=== PATIENT | female | born 1980 | race Caucasian/White ===

== ENCOUNTER 2018-01-22 13:15 | Day surgery (SDC) | payer BC, SELFPAY ==
--- NOTE | 2018-01-22 10:34 | PDOC.DSDIS_ITS ---
Discharge Plan Disposition Patient Disposition: HOME Condition: Good Discharge Details Reason For Visit: family history Attending Provider: Elana Boogie Primary Care Provider: Deana Gurrola Home Meds and New Rx's Prescriptions: Continue acetaminophen 500 MG tablet 1 - 2 tab PO Q4H PRN RF: 0 naproxen sodium [Aleve] 220 MG tablet 2 tab PO BID PRNRF: 0 sumatriptan succinate 25 MG tablet 25 mg PO ONCE Qty: 16 RF: 3 sertraline 50 mg tablet 1 tab PO DAILY Qty: 90 RF: 3 lisinopril 20 mg tablet 20 mg PO DAILY Qty: 90 RF: 3 Discharge Instructions Instructions: Colonoscopy (DC), Hemorrhoids (DC), Diverticulosis (DC) Additional Instructions: Findings: small internal hemorrhoids mild diverticulosis Follow up: 5 years New Medications: none Please call if you develop: fevers >101.5 Nausea or Vomiting Abdominal pain that is not transient 1. Because there will be medication in your system for the next 24 hours, you may feel a little sleepy. Your coordination will be affected. Therefore: a. Do not drive or operate dangerous equipment for 24 hours. b. Do not drink alcohol beverages for 24 hours (not even beer). c. Plan to go home and rest for the day. 2. Generally there are no restrictions on your activity after a day or so has gone by, but you may feel a bit fatigued for a few days. 3 After you arrive home you may have a light meal and return to a normal diet as you can tolerate it without feeling sick to your stomach. 4. After surgery, you may feel pain or discomfort. This should be only transient , but if it persists please contact your doctor. 5. If there are any questions regarding the findings of your procedure, please feel free to contact your doctor. 6. If you are unable to contact your doctor with a problem, contact the hospital at [phone]. 7. Continue all your regular medications unless directed otherwise. I understand the above instructions and have no questions. Signature of Patient or Responsible Adult Escort Date/Time Name of Responsible Adult Escort Signature of Nurse Date/Time Activity:: Activity as Tolerated Diet:: High fiber diet Discharge Orders Discharge Orders: Discharge Order (Routine); Ordered 01/22/18 Ordered By: Elana Boogie DS: Diagnosis Discharge Diagnosis (1) Family history of colon cancer: Status: Acute (2) Internal hemorrhoids without complication: Status: Acute (3) Diverticulosis: Status: Acute
--- NOTE | 2018-01-22 10:34 | W.COLOREPORT ---
Date of service: 01/22/18 Time of Service: 15:50 Colonoscopy Report Date of procedure: 01/22/18 Pre-op diagnosis general: Family history of colon cancer Post-op diagnosis procedure note: same (small internal hemorrhoids) Procedure: Colonoscopy Surgeon: Elana Boogie Anesthesia proc note operative: MAC (Aubrie Cardona CRNA) Pathology: none sent Complications: None Disposition: same day Indications: Mrs. Hugo is a pleasant 37 year old female seen in the office for a colonoscopy. Her mother was diagnosed with Colon Cancer at age 40 but also has had UC. Patient denies any changes in bowel habits, abdominal pain, bleeding or unintentional weight loss. Risks, benefits and complications were reviewed and she wished to proceed. No guarantees were given or implied. Prep: Miralax/Dulcolax Procedure Start Time: 15:08 Procedure End Time: 15:43 Retraction Time: 19 minutes Findings: Small internal hemorrhoids mild diverticulosis Procedure Description: After informed consent was obtained the patient was taken to the procedure room and placed in a left decubitous position. Monitors were applied and a time out was done. The patients name, date of , procedure, allergies to medications and metal in their body was reviewed. The patient was then sedated. Once sedated and comfortable a rectal exam was done. External exam was normal. Internal exam revealed a normal sphincter tone and no palpable masses. The scope was then introduced and retroflexed. Small internal hemorrhoids were identified. The scope was then advanced to the cecum without difficulty. The TI and appendiceal orifice were identified. The prep was adeuquate. The scope was then slowly retracted over 19 minutes back into the rectum. The scope was removed and the patient was woken up and taken back to Same day surgery in stable condition. The patient tolerated the procedure well and there were no immediate complications. Follow up: The patient should follow up in 5 years unless they develop changes in bowel habits or other new gastrointestinal complaints.
[2018-01-22 13:32] VITALS: BP 120/78; PULSE 90; RESP 16; TEMP 37.5; O2SAT 97
[2018-01-22] MEDS: Lactated Ringers 1,000 ML 80 ML IV (14:00)
[2018-01-22 16:07] VITALS: BP 124/86; PULSE 70; RESP 18; TEMP 36.6; O2SAT 97
== END 2018-01-22 17:02 | disposition home or self-care (01) ==
PROVIDERS: PCP Family Medicine; Visit Provider Surgery
PROC: 0DJD8ZZ Inspection of Lower Intestinal Tract, Via Natural or Artificial Opening Endoscopic (ICD-10-PCS; CPT 45378; principal; 2018-01-22 14:45)
DX: Z12.11 Encounter for screening for malignant neoplasm of colon (principal); Z80.0 Family history of malignant neoplasm of digestive organs; K64.8 Other hemorrhoids
CPT/HCPCS: 45378

== ENCOUNTER 2018-05-27 15:23 | Outpatient (CLI) | payer BC, SELFPAY ==
--- NOTE | 2018-05-27 08:50 | DI.RAD_ITS ---
SYMPTOM/DIAGNOSIS: ? CALCIFIC TENDINITIS, ROTATOR CUFF SYNDROME, RT SHOULDER PAIN, M25.51, [id number], UNSPECIFIED ROTATOR CUFF TEAR OR RUPTURE OF SHOULDER RIGHT SHOULDER: The bony structures are normally mineralized. The joint spaces well maintained. There are minimal degenerative changes involving the AC joint. There is no evidence of a fracture or dislocation.
== END 2018-05-27 15:43 ==
PROVIDERS: PCP Family Medicine; Visit Provider Family Medicine
DX: M25.511 Pain in right shoulder (principal); M19.011 Primary osteoarthritis, right shoulder; M75.101 Unspecified rotator cuff tear or rupture of right shoulder, not specified as traumatic
CPT/HCPCS: 73030

== ENCOUNTER 2018-09-01 09:57 | Outpatient (REF) | payer BC, SELFPAY ==
--- NOTE | 2018-09-01 09:30 | PAPFT_PTH ---
PATIENT: Suzie Hugo LOC: [facility] U#:[id number] AGE/SX: 37/F ROOM: RE09/01/[address]: KUSHAL Gotti : 1980 BED: DIS: 09/01/2018 SPEC #: [id number] RECD: 09/01/18 13:01 STATUS: KATIA KIMBERLI #: [id number] JOHNATHAN: 09/01/18 09:[address]: Holly Alvarez DEPT: [facility] Cytology RECD BY: Kamilah Bashir ENTERED: 09/01/18 13:02 SP TYPE: PAPFT OTHR DR: Deana Gurrola MD, DC Tissues: 1 - CX/ENDOCX FOR PAP SMEARS Procedures: PAP THIN PREP/UVM Screening HPV DNA PROBE Comments: [id number]
== END 2018-09-01 10:17 ==
LOC: LBN 09:57
PROVIDERS: PCP Family Medicine; Visit Provider Nurse Practitioner Family
DX: Z12.4 Encounter for screening for malignant neoplasm of cervix (principal); Z11.51 Encounter for screening for human papillomavirus (HPV)
CPT/HCPCS: 88142; 87624

== ENCOUNTER 2019-01-28 18:12 | Emergency (ER) | payer BC, SELFPAY ==
[2019-01-28] VITALS (17 sets, daily range): BP systolic 128–138; BP diastolic 86–93; PULSE 69–94; RESP 8–26; TEMP 36.3; O2SAT 94–99
--- NOTE | 2019-01-28 18:39 | ED.GENADUL_ITS ---
Discharge Plan Disposition Patient Disposition: HOME Condition: Stable Discharge Details Chief Complaint: Chest Pain Clinical Impression: Chest pain Primary Care Provider: Deana Gurrola ED Provider: Sheng Quispe Home Meds and New Rx's Prescriptions: New diazepam [Valium] 5 mg tablet 5 mg PO TID PRN (Reason: muscle spasm) Qty: 14 RF: 0 Continued acetaminophen 500 MG tablet 1 - 2 tab PO Q4H PRN RF: 0 naproxen sodium [Aleve] 220 MG tablet 2 tab PO BID PRNRF: 0 sumatriptan succinate 25 MG tablet 25 mg PO ONCE Qty: 16 RF: 3 lisinopril 20 mg tablet 20 mg PO DAILY Qty: 90 RF: 3 sertraline 50 mg tablet 50 mg PO DAILY Qty: 90 RF: 3 Discharge Instructions Instructions: Chest Pain (ED) Additional Instructions: your blood work and cat scan did not show any concerning findings follow up with your primary care provider within 1-2 weeks if you have severe worsening pain, feel more ill or have worsening shortness of breath return to the emergency department Medical Decision Making <Trinity Landa DO - Last Filed: 01/28/19 20:01> 1855 -- 38-year-old female with history of hypertension, high cholesterol, migraine who presents with anterior chest pain with radiation to her back and left arm that started while driving in the car today. Pain worse with deep breath and some movement. Denies known injury. Denies recent surgery, travel, leg pain or swelling or history of oral contraceptives. She states her mother has a history of frequent DVTs but she is unsure of specific blood clotting disorder. EKG on arrival notes a rate of 76, sinus with less than [address] depression in V3 and V4 but no acute ST elevation. Patient has tenderness to palpation of her right parasternal region without evidence of trauma, rash or infection. Pain is also reproduced when moving from supine to sitting position. Presentation appears most likely consistent with chest wall strain or cos tochondritis as it is reproducible, worse with deep breath and movement and palpation. However, will obtain screening labs and CT chest to rule out PE, ACS, electrolyte abnormality. Will give a dose of Toradol, Lidoderm patch and give liter IV fluids. If work-up negative and symptoms improve, will obtain a 4-hour troponin. 1999 --Case endorsed to Dr. Quispe to follow-up on labs and imaging and final disposition. Medical Records Medical records reviewed: Yes I reviewed the patient's medical records. ECG Data Attestation: I personally reviewed and interpreted this ECG (s) as follows: Interpretation: Rate of 76, sinus. Less than [address] depression in V3 and V4. No acute ST elevation. NE 144. QTc 418. QRS 94. <Sheng Quispe MD - Last Filed: 01/28/19 20:45> patient's labs and imaging unremarakble, she has reproducible pain on anterior chest, suspect costochondritis vs esophageal spasm. Will d/c with muscle relaxers for possible spasm and advised f/u with pcp and return precautions given Lab Data Lab results reviewed: Yes I reviewed the patient's lab results. HPI <Trinity Landa DO - Last Filed: 01/28/19 20:01> General Mode of arrival: ambulatory . Date/Time Provider Initiated Documentation: 01/28/19 18:14 . Limitations to Documentation: no limitations . Information obtained by: patient . History of Present Illness with intensity rated at 7. Quality is described as constant and other (Pressure), and is localized to the chest. Patient reports radiation to back. Patient started experiencing this hour(s) (2) and it has been constant. Rest improves symptom(s), Other factors that worsen symptoms (Deep breath, moving from supine to sitting position) . Patient notes denies cough, diaphoresis, fever/chills, loss of appetite, nausea/vomiting, rash, shortness of breath, syncope and weakness. Patient did receive the following treatments prior to arrival, none Related Data Home Medications Medication Instructions Recorded Confirmed acetaminophen 1 - 2 tab PO Q4H PRN 06/25/12 01/28/19 naproxen sodium [Aleve] 2 tab PO BID PRN 07/12/13 01/28/19 sumatriptan succinate 25 mg PO ONCE #16 tab-cap 08/06/16 01/28/19 lisinopril 20 mg tablet 20 mg PO DAILY #90 tab-cap 01/06/19 01/28/19 sertraline 50 mg tablet 50 mg PO DAILY #90 tab-cap 01/06/19 01/28/19 diazepam [Valium] 5 mg PO TID PRN #14 tab 01/28/19 Previous Rx's Medication Instructions Recorded lisinopril 20 mg tablet 20 mg PO DAILY #90 tab-cap 01/06/19 sertraline 50 mg tablet 50 mg PO DAILY #90 tab-cap 01/06/19 diazepam [Valium] 5 mg PO TID PRN #14 tab 01/28/19 Allergies Allergy/AdvReac Type Severity Reaction Status Date / Time Scallops AdvReac Swelling Uncoded 01/28/19 18:40 and GI Review of Systems <Trinity Landa DO - Last Filed: 01/28/19 20:01> All systems reviewed & are unremarkable except as noted in HPI and below Constitutional Constitutional: Reports as per HPI, Denies chills and Denies fever(s) Eyes Eyes: Denies blurry vision ENT Ears, Nose, Mouth, and Throat: Denies dizziness, Denies sore throat and Denies throat swelling Cardiovascular Cardiovascular: Reports chest pain and Denies dyspnea Respiratory Respiratory: Denies cough and Denies dyspnea Gastrointestinal Gastrointestinal: Denies abdominal pain, Denies diarrhea and Denies vomiting Genitourinary Genitourinary: Denies hematuria and Denies dysuria Musculoskeletal Musculoskeletal: Denies back pain and Denies numbness Integumentary/Breasts Skin/Breast: Denies lesions and Denies rash Neurologic Neurologic: Denies dizziness, Denies focal weakness and Denies numbness Allergic/Immunologic Allergic/Immunologic: Denies throat swelling PFSH <Trinity Landa DO - Last Filed: 01/28/19 20:01> Medical History Anxiety (Acute 02/21/16) Diverticulosis (Acute) Essential hypertension (Acute 01/04/13) Family history of colon cancer (Acute 08/21/17) Mother - UC and Dx with colon ca at 40 Family history of ovarian cancer (Acute 08/03/15) pt's father's mother and 2 sisters w/ ovarian ca thyroid ca in family Hyperlipidemia (Acute) Internal hemorrhoids without complication (Acute) Migraine (Acute) Skin lesion of face (Acute) Surgical History section (~2004) X 2 Colonoscopy planned (Resolved ~01/22/18) Tonsillectomy and adenoidectomy (~2006) Family History Mother Colon cancer also had UC Thyroid cancer Father Prostate cancer Essential hypertension Brother Adenomatous colon polyp Grandmother Breast cancer paternal Social History Smoking/Tobacco Use Status: Never Alcohol Intake: current Alcohol Intake frequency: holidays/special occasions only Drug use: Never Substance use type: does not use Do you feel safe at home: Yes Do you feel safe in your relationship?: Yes Exam <Trinity Landa DO - Last Filed: 01/28/19 20:01> Const General: cooperative, healthy appearing and no acute distress HENMT Head: normal to inspection Face and sinus: normal facial exam Eyes General: appearance normal, both eyes and all related structures EOM: EOM intact bilaterally Neck Neck: normal visual inspection and No submandibular swelling Lymphatic: no lymphadenopathy noted Chest Chest: normal inspection of the chest and no tenderness Resp Effort & Inspection: normal respiratory effort and able to speak in complete sentences Auscultation: clear to auscultation bilaterally Cardio Rate: regular rate Rhythm: regular rhythm GI Inspection: normal to inspection Palpation: soft, not firm, not rigid and nontender Auscultation: normal bowel sounds Back/Spine/Pelvis Thoracic/Lumbar Spine: thoracic and lumbar spine normal to inspection and No thoracic spinal tenderness Skin General skin exam: no rashes or lesions noted Neuro General: alert, awake and oriented x3 Cognition: normal cognition Speech: speech normal Motor: muscle tone normal throughout Sensory Exam: no sensory deficits noted Extrem General: normal to inspection, full ROM, normal capillary refill, no calf tenderness bilaterally and no edema Other: Bilateral radial and ulnar pulses intact. Psych Appearance: grossly normal Mental Status: mental status grossly normal Speech and Movement: speech and movement normal Affect: normal affect Sign Out <Trinity Landa DO - Last Filed: 01/28/19 20:01> Sign Out Data: Sign Out Comment: Follow-up on labs and imaging and final disposition. Last updated by Trinity Landa DO at 01/28/19 19:19
[2019-01-28] MEDS: Ketorolac 30 MG/ML VIAL IVP (19:25)
[2019-01-28] MEDS: Lidocaine 5% Patch 1 PATCH TP (19:30)
[2019-01-28 19:47] LABS: Abs Immature Grans 0.03 k/cumm (0.0-0.09); Absolute Basophil Count 0.04 k/cumm (0.0-0.2); Absolute Eosinophil Count 0.13 k/cumm (0.0-0.7); Absolute Lymphocyte Count 3.39 k/cumm (1.2-3.4); Absolute Monocyte Count 0.76 k/cumm (0.11-0.7); Absolute Neutrophil Count 5.04 k/cumm (1.2-6.7); Basophils % 0.4; Eosinophils % 1.4; HCT 40.1 % (36.0-46.0); Immature Grans % 0.3; Lymphocytes % 36.1; Mean Corp. HGB Concentration 32.4 g/dL (32.0-36.0); Mean Corpuscular Hemoglobin 27.2 pg (27.0-33.0); Mean Corpuscular Volume 83.9 fL (80-95); Mean Platelet Volume 8.8 fL (8.0-11.0); Monocytes % 8.1; Neutrophils % 53.7; Platelet Count 432 x1000/uL (130-400); RBC 4.78 m/cumm (4.00-5.20); RBC Distribution Width 14.8 % (11.7-14.6); White Blood Cell Count 9.39 k/cumm (4.4-10.8)
[2019-01-28] MEDS: Omnipaque 350 MG/ML 100 ML BTL IJ (20:14)
--- NOTE | 2019-01-28 20:14 | DI.CT_ITS ---
EXAM: CT CHEST PE CTA CLINICAL HISTORY: chest pain, pleuritic pain,? PE TECHNIQUE: Imaging Protocol: Axial CT angiography was performed with multi-slice acquisition and mu lti-planar and/or 3D reconstructions. CONTRAST MATERIAL: Intravenous: Omnipaque 350 Contrast volume:100 mL contrast route:IV - Oral:No COMPARISON: No exams were available for comparison FINDINGS: Pulmonary Arteries: No evidence of filling defect to suggest pulmonary emboli. Tracheobronchial tree: Patent where visualized. Mediastinum and Britney: No dominant adenopathy or fluid collection. Pulmonary parenchyma: No consolidation or dominant measurable mass. No architectural distortion. Depe ndent atelectatic changes are seen in the lung bases. Pleura: No effusion or pneumothorax. Heart/Aorta: There is no evidence of thoracic aortic dissection or aneurysm. The heart is not dilate d. No coronary artery calcifications are seen. No pericardial effusion or right heart strain. Upper abdomen: Unremarkable. Bones: No acute abnormality. IMPRESSION: No evidence of pulmonary embolus, thoracic aortic dissection or aneurysm. DATA REPOSITORY: All CT scans at this facility are submitted to the National Radiology Data Registry (NRDR) Dose Index Registry (DIR) with the [employer] (ACR). RADIATION OPTIMIZATION: All CT scans at this facility use at least one of these dose optimization te chniques: automated exposure control; mA and/or kV adjustment per patient size (includes targeted exa ms where dose is matched to clinical indication); or iterative reconstruction.
[2019-01-28 20:18] LABS: ALT 26 U/L (14-59); AST 14 U/L (15-37); Albumin 3.8 g/dL (3.4-5.0); Alkaline Phosphatase 67 U/L (46-116); Anion Gap 11.1 mmol/L (3-11); BUN 9 mg/dL (7-18); Bilirubin, Total 0.1 mg/dL (0.2-1.0); CO2 24.9 mmol/L (21.0-32.0); CREATININE 0.81 mg/dL (0.55-1.02); Calcium 8.9 mg/dL (8.5-10.1); Chloride 105 mmol/L (98-107); Glucose 89 mg/dL (70-100); Magnesium 1.9 mg/dL (1.8-2.4); Potassium 3.6 mmol/L (3.5-5.1); Sodium 141 mmol/L (136-145); Total Protein 7.4 g/dL (6.4-8.2)
[2019-01-28 20:21] LABS: Troponin I < 0.05 ng/mL (0.00-0.06)
--- NOTE | 2019-01-28 20:35 | DI.VRAD_ITS ---
PROCEDURE INFORMATION: Exam: CT Angiography Chest With Contrast Exam date and time: 01/28/2019 8:06 PM Clinical history: 38 years old, female; Chest pain; Other: Pleuritic pain; Additional info: Reduced flow rate of injection due to iv gauge and sensitivity. PT not able to tolerate increased injection rate TECHNIQUE: Imaging protocol: Computed tomographic angiography of the chest with intravenous contrast. 3D rendering: MIP reconstructed images were created and reviewed. Radiation optimization: All CT scans at this facility use at least one of these dose optimization techniques: automated exposure control; mA and/or kV adjustment per patient size (includes targeted exams where dose is matched to clinical indication); or iterative reconstruction. Contrast material: [id number]; Contrast volume: 100 ml; Contrast route: IV LT FOREARM 20G; COMPARISON: No relevant prior studies available. FINDINGS: Pulmonary arteries: Normal. No pulmonary emboli. Aorta: Unremarkable. No aortic aneurysm. No aortic dissection. Lungs: There is subpleural atelectasis of the dependent portions of the lungs. There is poor ventilation of the lungs, accounting for mild diffuse increase in pulmonary parenchymal density. No acute interstitial or airspace disease. Pleural space: Unremarkable. No pneumothorax. No pleural effusion. Heart: Unremarkable. No cardiomegaly. No pericardial effusion. Lymph nodes: Unremarkable. No enlarged lymph nodes. Bones/joints: Unremarkable. No acute fracture. Soft tissues: Unremarkable. Other findings: The visualized intra-abdominal structures demonstrate no acute findings. IMPRESSION: No acute thoracic pathology. Dictated and Authenticated by: Heladio Galo MD. Ordering:LUIS CARLOS Petersen MD
[2019-01-28] MEDS: diazePAM 5 MG TAB PO (20:48)
== END 2019-01-28 20:50 | disposition home or self-care (01) ==
PROVIDERS: Physician Assistant; Emergency Provider Emergency Medicine; PCP Family Medicine
DX: R07.9 Chest pain, unspecified (principal)
CPT/HCPCS: 36415; 71275; 80053; 81025; 93005; 96374; 99285; 83735; 84484; 85025; 93010; J1885; J3490

== ENCOUNTER 2020-02-04 01:57 | Outpatient (CLI) | payer BC, SELFPAY ==
[2020-02-07 20:46] LABS: Patient Race White; SARS-CoV-2 RNA Undetected (Undetected); SARS-CoV-2 Specimen Source Nasal
== END 2020-02-04 02:17 ==
PROVIDERS: Nurse Practitioner Family; PCP Family Medicine; Visit Provider Family Medicine
DX: Z20.828 Contact with and (suspected) exposure to other viral communicable diseases (principal)
CPT/HCPCS: U0003

== ENCOUNTER 2020-05-22 04:24 | Outpatient (CLI) | payer BC, SELFPAY ==
[2020-05-22 09:54] LABS: TSH (W/Ref FT4) 1.33 uIU/mL (0.36-3.74)
== END 2020-05-22 04:25 | disposition home or self-care (01) ==
LOC: LBO 04:24
PROVIDERS: PCP Family Medicine; Visit Provider Nurse Practitioner Family
DX: N92.0 Excessive and frequent menstruation with regular cycle (principal)
CPT/HCPCS: 36415; 84443

== ENCOUNTER 2020-05-30 01:17 | Outpatient (CLI) | payer BC, SELFPAY ==
--- NOTE | 2020-05-30 08:00 | DI.US_ITS ---
EXAM: US PELVIS TRANSVAGINAL CLINICAL HISTORY: Menorrhagia,N92.0 TECHNIQUE: Ultrasound performed using standard protocol. COMPARISON: US PELVIS TRANSVAG from 01/30/2011 FINDINGS: Pelvic ultrasound was performed transabdominally and transvaginally. Uterus measures 9.7 x 4.9 x 4.7 cm. Endometrial stripe is about 22 millimeters in thickness and appe ars fairly homogeneous. No free fluid in the endometrial cavity. The ovaries have a normal follicular appearance. Probable right ovarian dominant follicle. Right ov hao measures 29 x 26 x 19 millimeters and left ovary measures 27 x 13 x 13 millimeters. Doppler eval uation of the ovaries is unremarkable. No free fluid identified in the cul-de-sac. Limited scanning of the kidneys is unremarkable. IMPRESSION: Negative pelvic ultrasound except for question mild endometrial thickening, please correlate with men strual status. DATA REPOSITORY:
== END 2020-05-30 01:37 ==
PROVIDERS: PCP Family Medicine; Visit Provider Nurse Practitioner Family
DX: N92.0 Excessive and frequent menstruation with regular cycle (principal)
CPT/HCPCS: 76830; 76856

== ENCOUNTER 2020-06-01 15:49 | Outpatient (REF) | payer BC, SELFPAY ==
--- NOTE | 2020-06-01 15:30 | ENDOMET_PTH ---
PATIENT: Suzie Hugo LOC: [facility] U#:[id number] AGE/SX: 39/F ROOM: RE06/01/[address]: Isabel Parrish : 1980 BED: DIS: 06/01/2020 SPEC #: [id number] RECD: 06/01/20 17:28 STATUS: KATIA REMichelle #: [id number] JOHNATHAN: 06/01/20 15:[address]: Isabel Parrish DEPT: Surgical Specimen RECD BY: Kamilah Bashir ENTERED: 06/01/20 17:28 SP TYPE: Endomet OTHR DR: Deana Gurrola MD, DC Tissues: 1 - ENDOMETRIUM BX/CURRETTE Procedures: GROSS AND MICRO LEVEL 4 Comments: [id number]
== END 2020-06-01 15:50 | disposition home or self-care (01) ==
LOC: LBN 15:49
PROVIDERS: PCP Family Medicine; Visit Provider Obstetrics & Gynecology Gynecology
DX: N84.0 Polyp of corpus uteri (principal); N85.8 Other specified noninflammatory disorders of uterus; N93.8 Other specified abnormal uterine and vaginal bleeding
CPT/HCPCS: 88305

== ENCOUNTER 2020-07-03 02:45 | Outpatient (CLI) | payer BC, SELFPAY ==
[2020-07-03 11:49] LABS: Source Nasal/Nares
[2020-07-03 18:19] LABS: COVID-19 PCR Negative (Negative)
== END 2020-07-03 02:46 | disposition home or self-care (01) ==
LOC: LBO 02:45
PROVIDERS: PCP Family Medicine; Visit Provider Obstetrics & Gynecology Gynecology
DX: Z20.822 Contact with and (suspected) exposure to COVID-19 (principal); Z01.818 Encounter for other preprocedural examination
CPT/HCPCS: 87635

== ENCOUNTER 2020-07-05 06:03 | Day surgery (SDC) | payer BC, SELFPAY ==
[2020-07-05 06:32] VITALS: BP 122/88; PULSE 85; RESP 18; TEMP 36.6; O2SAT 97
[2020-07-05] MEDS: Lactated Ringers 1,000 ML 125 ML IV (06:43)
[2020-07-05 06:49] LABS: HCT 40.2 % (36.0-46.0); HGB 12.7 g/dL (11.2-15.7); MCH 26.8 pg (27.0-33.0); MCHC 31.6 % (32.0-36.0); MCV 84.8 fL (80-95); MPV 8.9 fL (8.0-11.0); Platelet Count 449 10^3/uL (130-400); RBC 4.74 10^6/uL (3.93-5.22); RDW 14.4 % (11.7-14.6); RDW-SD 44.4 fL; WBC 9.48 10^3/uL (4.4-10.8)
[2020-07-05 06:59] LABS: BUN 16 mg/dL (7-18); CREATININE 0.8 mg/dL (0.55-1.02); Calcium 9.2 mg/dL (8.5-10.1); Chloride 105 mmol/L (98-107); Glucose 103 mg/dL (74-106); Potassium 4.2 mmol/L (3.5-5.1); Sodium 141 mmol/L (136-145)
[2020-07-05] MEDS: Bupivacaine 0.25% Pres-Free 30 ML VIAL (07:49)
[2020-07-05] MEDS: Silver Nitrate Stick 1 EACH (08:18)
--- NOTE | 2020-07-05 08:48 | W.PM.DSUDISC ---
Discharge Plan Disposition Patient Disposition: HOME Condition: Fair Discharge Details Reason For Visit: Hydrothermal endometrial ablation Attending Provider: Isabel Parrish Primary Care Provider: Deana Gurrola Home Meds and New Rx's Prescriptions: No Action acetaminophen 500 MG tablet 1 - 2 tab PO Q4H PRN RF: 0 naproxen sodium [Aleve] 220 MG tablet 2 tab PO BID PRNRF: 0 sumatriptan succinate 25 MG tablet 25 mg PO ONCE Qty: 16 RF: 3 sertraline 50 mg tablet 50 mg PO DAILY Qty: 90 RF: 3 lisinopril 20 mg tablet 20 mg PO DAILY Qty: 90 RF: 3 Discharge Instructions Additional Instructions: You may use ibuprofen and Tylenol for pain. Please call the on-call provider at [phone] if you have pain that is not improved with Tylenol or ibuprofen. You can expect watery vaginal discharge for the next [address] Parrish wants to see you in 2 [facility] Stand Alone Forms: DSU Post Gynecology Surgery Activity:: Activity as Tolerated Diet:: As Tolerated Discharge Orders Discharge Orders: Discharge Order (Routine); Ordered 07/05/20 Ordered By: Isabel Parrish DS: Diagnosis Discharge Diagnosis (1) History of endometrial ablation: Status: Acute
[2020-07-05 09:00] VITALS: BP 118/82; PULSE 72; RESP 16; TEMP 35.9; O2SAT 94
[2020-07-05] MEDS: oxyCODONE 5 mg/Acetaminophen 325 mg TAB PO (09:02)
--- NOTE | 2020-07-06 13:37 | W.PM.OP ---
Date of service: 07/06/20 Time of Service: 15:00 Operative Note Operative Note DATE OF PROCEDURE: 07/05/20 PRE-OP DIAGNOSIS: Abnormal uterine bleeding PROCEDURE: Hydrothermal endometrial ablation SURGEON: Isabel Parrish ANESTHESIA TYPE: MAC Refer to Anesthesia Record ESTIMATED BLOOD LOSS: 0 PATHOLOGY: none sent COMPLICATIONS: None Patient was transported to: same day Patient's condition: stable Indications: female with a new onset of heavy menses beginning approximately 4 months ago. She reported heavy flow with passage of clots and cramping. Uterine bleeding heavy enough to prevent her from leaving house or sometimes leaving the bathroom. Endometrial biopsy performed prior to the procedure showed no dysplasia. Findings: Uterus sounded to 7 cm. 2 polypoid structures at the uterine fundus were noted at the time of the hysteroscopy. After the hysteroscopy was performed they were attenuated in size. Treatment response was noted on the uterine dean and the uterine cornua. Cavity of the uterus was intact at the completion of the procedure. Procedure Description: Patient was taken to the operating room where she was placed in the dorsal supine position and monitored anesthesia care was administered without difficulty. She was then placed in the dorsolithotomy position in yellowfin stirrups and prepped and draped in the usual sterile fashion. SCDs were in place. No antibiotics were required. Surgical timeout was performed and a bivalve speculum was placed in the patient's vagina. The anterior lip of the cervix was infiltrated with 1 cc 0.25% bupivacaine and a single-tooth tenaculum was used to grasp the anterior lip of the cervix. A paracervical block was performed with infiltration of 5 cc of 0.25% bupivacaine at the 4:00 and 6:00 paracervical spaces respectively. The uterus was sounded with the above-noted finding. Cervix was then sequentially dilated to a maximum of 16 Kumari. And a hysteroscope sheath was inserted into the uterine cavity and a cavity assessment was performed with the above noted findings. The tip of the hysteroscope sheath was positioned to allow visualization of the uterine fundus, both tubal ostia in the midportion of the uterine cavity. The sheath was protected from the vaginal dean by the vagina proximity to the speculum. Heated isotonic saline was then administered via gravity into the uterus through the sheath. Once a safety assessment was performed the treatment phase of the procedure began and under direct observation the uterine cavity was treated with heated isotonic saline at 90 ?C for 10 minutes. Intrauterine cooldown phase was performed for 1 minute. The uterine cavity was carefully assessed with hysteroscopy for treatment effect and to confirm no breach of the uterine cavity. After these findings were confirmed the hysteroscope was removed followed by the single-tooth tenaculum. Tenaculum site was noted to be hemostatic. The speculum was removed and the patient placed in the dorsal supine position. She was successfully awakened from anesthesia and transported to day surgery unit in stable condition. All sponge lap needle counts correct x2.
== END 2020-07-05 10:05 | disposition home or self-care (01) ==
PROVIDERS: PCP Family Medicine; Visit Provider Obstetrics & Gynecology Gynecology
PROC: (CPT 58353; principal; 2020-07-05 07:30)
DX: N93.9 Abnormal uterine and vaginal bleeding, unspecified (principal); N84.0 Polyp of corpus uteri
CPT/HCPCS: 58563; 80048; 81025; 85027; 86850; 86900; 86901; 86920; 86870; 86902; J1100; J1885; J2001; J2250; J2405

== ENCOUNTER 2020-10-23 03:42 | Outpatient (CLI) | payer BC, SELFPAY ==
[2020-10-23 09:49] LABS: HCT 41.6 % (36.0-46.0); HGB 13.3 g/dL (11.2-15.7); MCV 84.6 fL (80-95); MPV 8.8 fL (8.0-11.0); Platelet Count 434 10^3/uL (130-400); RBC 4.92 10^6/uL (3.93-5.22); RDW 15.2 % (11.7-14.6); RDW-SD 46.9 fL; WBC 9.25 10^3/uL (4.4-10.8)
[2020-10-23 10:35] LABS: Anion Gap 9.5 mmol/L (3-11); BUN 10 mg/dL (7-18); CO2 24.5 mmol/L (21.0-32.0); CREATININE 0.7 mg/dL (0.55-1.02); Calcium 9.3 mg/dL (8.5-10.1); Chloride 104 mmol/L (98-107); Glucose 111 mg/dL (74-106); Sodium 138 mmol/L (136-145)
[2020-10-23 10:42] LABS: Potassium 4.5 mmol/L (3.5-5.1)
== END 2020-10-23 03:43 | disposition home or self-care (01) ==
PROVIDERS: PCP Family Medicine; Visit Provider Obstetrics & Gynecology Gynecology
DX: N93.8 Other specified abnormal uterine and vaginal bleeding (principal); Z01.818 Encounter for other preprocedural examination; Z01.812 Encounter for preprocedural laboratory examination
CPT/HCPCS: 36415; 80048; 85027; 86850; 86900; 86901; 86920; 86870; 86902

== ENCOUNTER 2020-10-23 12:13 | Outpatient (CLI) | payer BC, SELFPAY ==
[2020-10-23 13:02] LABS: Source Nasal/Nares
[2020-10-24 15:25] LABS: COVID-19 PCR Negative (Negative)
== END 2020-10-23 12:14 | disposition home or self-care (01) ==
PROVIDERS: PCP Family Medicine; Visit Provider Obstetrics & Gynecology Gynecology
DX: Z20.822 Contact with and (suspected) exposure to COVID-19 (principal); Z01.818 Encounter for other preprocedural examination
CPT/HCPCS: 87635

== ENCOUNTER 2020-10-25 10:14 | Observation (INO) | payer BC, SELFPAY ==
[2020-10-25] VITALS (16 sets, daily range): BP systolic 108–127; BP diastolic 66–90; PULSE 69–90; RESP 11–18; TEMP 36.3–36.9; O2SAT 93–99; BMI 37.5
[2020-10-25] MEDS: Lactated Ringers 1,000 ML 125 ML IV ×2 (06:45→11:42)
--- NOTE | 2020-10-25 07:07 | W.ANESPRE ---
General Info Date of Service Date Performed: 10/25/20 Height: 5 ft 11 in Weight: 122.2 kg Body Mass Index (BMI): 37.5 Surgical Procedure: Operation Date: 10/25/20 07:40 Proposed Procedures Side Surgeon p Hysterectomy Vaginal Laparoscopic Assist WITH ZAKI SALPINGECYTOMY AND BLADDER CYSTO Isabel Parrish MD Meds Allergies and Home Medications Allergies Allergy/AdvReac Type Severity Reaction Status Date / Time Scallops AdvReac Mild Swelling Uncoded 10/25/20 06:18 and GI Home Medication Medication Instructions Recorded acetaminophen 1 - 2 tab PO Q4H PRN 06/25/12 naproxen sodium [Aleve] 2 tab PO BID PRN 07/12/13 sumatriptan succinate 25 mg PO ONCE #16 tab-cap 08/06/16 lisinopril 20 mg tablet 20 mg PO DAILY #90 tab-cap 01/26/20 sertraline 50 mg tablet 50 mg PO DAILY #90 tab-cap 01/26/20 Current Visit Medications: Current Medications Generic Name Dose Route Start Last Admin Trade Name Freq PRN Reason Stop Dose Admin Ringer's Solution 1,000 mls @ 125 mls/hr 10/25/20 06:00 10/25/20 06:45 IV 11/23/20 23:59 125 mls/hr INFUSION HEMALATHA Administration Cefazolin Sodium/Dextrose 2 gm in 50 mls @ 100 mls/hr 10/25/20 06:00 Ancef Duplex IVPB 10/25/20 18:00 PREOP HEMALATHA IV Miscellaneous Supplies 1 each 10/25/20 06:00 Iv Access IV 11/23/20 23:59 DIRECTED HEMALATHA Sodium Chloride 0 ml 10/25/20 06:00 Normal Saline Flush 10 Ml Syr IV 11/23/20 23:59 PRN PRN Sodium Chloride 0 ml 10/25/20 06:00 Normal Saline 10 Ml Vial IJ 11/23/20 23:59 DIRECTED PRN Sterile Water 0 ml 10/25/20 06:00 Water,Injection,Sterile 10 Ml Vial IJ 11/23/20 23:59 DIRECTED PRN PFSH Active Problems Active Problems: Problem Status Onset Code Supraclavicular fossa fullness R22.2 Abnormal uterine bleeding (AUB) N93.9 History of endometrial ablation Z98.890 Menorrhagia with regular cycle N92.0 Costochondral chest pain R07.1 Diverticulosis K57.90 Internal hemorrhoids without complication K64.8 Migraine G43.909 Hyperlipidemia E78.5 Family history of ovarian cancer 08/03/15 Z80.41 Family history of colon cancer 08/21/17 Z80.0 Essential hypertension 01/04/13 I10 Anxiety 02/21/16 F41.9 Medical History Medical History (Updated 10/25/20 @ 07:24 by Isabel Parrish MD) Abnormal uterine bleeding (AUB) Anxiety (02/21/16) Diverticulosis Essential hypertension (01/04/13) Family history of colon cancer (08/21/17) Mother - UC and Dx with colon ca at 40 Family history of ovarian cancer (08/03/15) pt's father's mother and 2 sisters w/ ovarian ca thyroid ca in family Hyperlipidemia Internal hemorrhoids without complication Menorrhagia with regular cycle Migraine Skin lesion of face Surgical History Surgical History section (~2004) X 2 Colonoscopy planned (~01/22/18) History of endometrial ablation Tonsillectomy and adenoidectomy (~2006) Tobacco Smoking/Tobacco Use Status: Never Alcohol Alcohol Intake: current Alcohol intake frequency: holidays/special occasions only Substance Use Substance use: Never Substance use type: does not use Prental History History 4 Para 2 Hx # Term Pregnancies Multiple births Hx # Pregnancies Ectopic pregnancies AB induced Hx Number of Living Children AB spontaneous Vital Signs and Lab Results Vital Signs Most Recent Vital Signs in EMR: Most Recent Vital Signs Temp Pulse Resp BP Pulse Ox 36.3 C L 86 16 122/83 97 10/25/20 06:20 10/25/20 06:20 10/25/20 06:20 10/25/20 06:20 10/25/20 06:20 Lab Results Blood Type / Crossmatch: Patient ABO/Rh O Positive 10/23/20 09:40 10/23/20 Antibody Screen POSITIVE 10/23/20 09:40 10/23/20 Crossmatch See Detail 10/23/20 09:40 10/23/20 Complete Blood Count: White Blood Count 9.25 10^3/uL (4.4-10.8) 10/23/20 09:40 10/23/20 Red Blood Count 4.92 10^6/uL (3.93-5.22) 10/23/20 09:40 10/23/20 Hemoglobin 13.3 g/dL (11.2-15.7) 10/23/20 09:40 10/23/20 Hematocrit 41.6 % (36.0-46.0) 10/23/20 09:40 10/23/20 Platelet Count 434 10^3/uL (130-400) H 10/23/20 09:40 10/23/20 Complete Metabolic Panel: Sodium Level 138 mmol/L (136-145) 10/23/20 09:40 10/23/20 Potassium Level 4.5 mmol/L (3.5-5.1) 10/23/20 09:40 10/23/20 Chloride Level 104 mmol/L (98-107) 10/23/20 09:40 10/23/20 Carbon Dioxide Level 24.5 mmol/L (21.0-32.0) 10/23/20 09:40 10/23/20 Blood Urea Nitrogen 10 mg/dL (7-18) 10/23/20 09:40 10/23/20 Creatinine 0.7 mg/dL (0.55-1.02) 10/23/20 09:40 10/23/20 Estimated GFR/1.73 m2 >= 60.00 (mL/min/1.73m2) 10/23/20 09:40 10/23/20 Calcium Level 9.3 mg/dL (8.5-10.1) 10/23/20 09:40 10/23/20 Glucose Level 111 mg/dL (74-106) H 10/23/20 09:40 10/23/20 Liver Function Panel: No Data to Display Coagulation Panel: No Data to Display Cardiac Panel: No Data to Display Arterial Blood Gas: No Data to Display Venous Blood Gas: No Data to Display Pancreas Panel: No Data to Display Thyroid Panel: No Data to Display Infectious Disease: Coronavirus (COVID-19)(PCR) Negative (Negative) 10/23/20 10:00 10/23/20 Coronavirus 2019 Source Nasal/Nares 10/23/20 10:00 10/23/20 Blood Cultures: No Data to Display Toxicology Panel: No Data to Display Panel: No Data to Display Anesthesia Assessment and Plan Anesthesia History Personal History: No History of Anesthesia Complications and Other (Hx high spinal requiring intubation) Family History: No Family History of Anesthesia Complications Exercise Tolerance Exercise Tolerance: Metabolic Equivalents>4 Pertinent Negatives Pertinent Negatives: No Symptoms of GERD, No Major Cardiovascular Symptoms or Complaints, No Major Pulmonary Symptoms or Complaints and No History of CVA/TIA Cardiac & Pulmonary Exam Cardiac Exam: Normal S1/S2 Heart Sounds Pulmonary Exam: Clear Bilateral Breath Sounds Airway Exam Known Difficult Airway: No Mallampati Class: 1 Mouth Opening: Normal (> 3cm) Thyromental Distance: Greater than 3 cm Neck Range of Motion: Full ROM Neck Circumference: Normal Teeth Condition: Normal Dentition ASA Classification ASA Score: ASA 2 Emergency Case?: No NPO Status NPO Status: NPO Clears >2 hours, Solids >8 hours Status Status: Positive HCG Anesthesia Plan Resuscitation Status: Full Code Anesthesia Technique: General Anesthesia Airway Planned: Endotracheal Tube Pain Management: Intrathecal Analgesia Monitors Used: Standard Monitors
[2020-10-25] MEDS: ceFAZolin 2 GM/50 ML BAG IVPB (08:05)
--- NOTE | 2020-10-25 09:41 | UTER_PTH ---
PATIENT: Suzie Hugo LOC: OBS U#:[id number] AGE/SX: 40/F ROOM: OBS.306 RE10/25/[address]: Isabel Parrish : 1980 BED: A DIS: 10/26/2020 SPEC #: [id number] RECD: 10/25/20 12:57 STATUS: KATIA REQ #: [id number] JOHNATHAN: 10/25/20 09:[address]: Isable Parrish DEPT: Surgical Specimen RECD BY: Kamilah Bashir ENTERED: 10/25/20 12:57 SP TYPE: UTER OTHR DR: Deana Gurrola MD, DC Tissues: 1 - UTERUS W OR W/O OVARIES(NOT TUMOR/PROLAPSE) Procedures: GROSS AND MICRO LEVEL 5 Comments: [id number]
[2020-10-25] MEDS: Bupivacaine 0.25% Pres-Free 30 ML VIAL (09:51)
--- NOTE | 2020-10-25 10:46 | W.ANESPOSTOP ---
Postoperative Evaluation Date, Time and Location Date Performed: 10/25/20 Time Performed: 10:47 Patient Location: PACU Vital Signs Most Recent Imported Vital Signs: Most Recent Vital Signs Temp Pulse Resp BP Pulse Ox 36.4 C L 74 14 111/66 93 10/25/20 10:29 10/25/20 10:29 10/25/20 10:29 10/25/20 10:29 10/25/20 10:29 Pain Score Most Recent Pain Score: Most Recent Pain Score Pain Level 0 10/25/20 10:29 Assessment Mental Status: Awake (Alert & Oriented to Patient Baseline) Airway and Respiratory Function: Patent airway with normal (patient baseline) respiratory exam Cardiovascular Function: Hemodynamically Stable Hydration Status: Adequately Hydrated Nausea & Vomiting: No Nausea or Vomiting Pain: Pt. Denies Any Pain Peripheral Nerve Block: Patient did not receive a nerve block
[2020-10-25] MEDS: HYDROmorphone 2 MG/ML VIAL IVP ×2 (11:13→11:31)
[2020-10-25] MEDS: Normal Saline Flush 10 ML SYR IV ×2 (11:14→21:52)
--- NOTE | 2020-10-25 11:32 | W.PM.OP ---
Operative Note Operative Note DATE OF PROCEDURE: 10/25/20 PRE-OP DIAGNOSIS: abnormal uterine bleeding POST-OP DIAGNOSIS: same PROCEDURE: attempted laparoscopic assisted vaginal hysterectomy with L salpingectomy converted to total abdominal hysterectomy with L salpingectomy. SURGEON: Isabel Parrish ASSISTING SURGEON: Renetta Anna ANESTHESIA TYPE: General LMA/ETT and Spinal Refer to Anesthesia Record ESTIMATED BLOOD LOSS: 350 PATHOLOGY: other (uterus, cervix, L fallopian tube) COMPLICATIONS: None (intraop consult with Dr. Boogie regarding small abd wall hernia. No intervention recommended.) Patient was transported to: PACU Patient's condition: stable Indications: 40yo female with a longstanding history of regular menses complicated by heavy flow and dysmenorrhea. Pt had a hydrothermal endometrial ablation performed in June 2020 with no improvement in her subsequent menses. Decision was made to proceed with definitive treatment. She wishes her ovaries to be conserved. Findings: Normal appearing bilateral ovaries. R fallopian tube surgically absent. Fimbriated end of left fallopian tube adherent to the surface of the left ovary. Serosal surface of the uterus was densely adherent to the peritoneal surface of the bladder that had been advanced above the lower uterine segment and extended the level of the insertion of the uterine vessels bilaterally. There was a knuckle of small intestine adherent to the middle of the left anterior abdominal wall at the level of the L adnexa. R ureter was visualized and was noted to be remote from the surgical site. L ureter was obscured by adhesions of small intestine to the L abd sidewall. Procedure Description: Patient was taken to the operating room where she was placed in the dorsal supine position and general endotracheal anesthesia was administered without difficulty. She was then placed in the dorsal lithotomy position in [facility] with SCDs in place. After being prepped and draped in the usual sterile fashion a surgical timeout was performed. Hammer catheter was placed to gravity drainage. A bivalve speculum was placed in the vagina the anterior lip of the cervix was grasped with a single-tooth tenaculum. A Xiomara uterine manipulator was successfully inserted into the uterine cavity, the catheter bulb inflated with 8 cc of normal saline and the device left in place. Attention was then turned to the patient's abdomen. She received 2 g of Ancef prior to skin incision. The umbilical fold was infiltrated with quarter percent Marcaine without epinephrine. A scalpel was then used to make a 12mm vertical skin incision in the umbilical fold. Two penetrating towel clips were used to tent up the skin and through the periumbilical incision and a Veres needle was introduced into the abdomen with carbon dioxide as the distention medium. Intra-abdominal placement was confirmed by a drop in the intra-abdominal pressure. Once a pneumoperitoneum was established a 12 mm Visiport was placed under direct visualization. Patient was then placed in Trendelenburg position. Two sites approximately 6 cm diagonally from the umbilical incision the skin were infiltrated with 1cc of 0.25% Marcaine without epinephrine, incised with a scalpel and two 5 mm lower ports were placed under direct visualization. Upon inspection of the abd and pelvis the knuckle of small intestine adherent to the middle of the left anterior abdominal wall at the level of the L adnexa. We requested Dr Boogie's opinion regarding the appearance of the bowel and she advised that no intervention was needed at this time. A LigaSure electrocautery device was used to clamp, cauterize and transect the remnant of fimbria attatched to the left mesoovarium of the left fallopian tube. The left fallopian tube was then delivered through the 12mm umbilical port site. Left proper ovarian ligament was then similarly clamped cauterized and transected from its attachment to the body of the uterus. The left round ligament and broad ligament were then clamped, cauterized and transected to the level of the lower uterine segment. We were unable to incise the vesico-uterine peritoneum in such a fashion as to separate it from the lower uterine segment. We were unable to mobilized off of the lower uterine segment. The three attempts to do so on the left lower uterine segment resulted in bleeding which required endoclips to acheive hemostasis. On the contralateral side the right fallopian tube was surgically absent. The proper ovarian ligament, round, and right broad ligament were sequentially clamped, cauterized and transected using the Ligasure device to the level of the lower uterine segment. The insertion of the uterine vessels was obscured by the overlying densely adherent vesicouterine peritoneum. We were unable to acheive a tissue plane to create the bladder flap and dissect it away from the lower uterine segement. Decision was made to covert to an abdominal hysterectomy. The trochars were removed, the pneumoperitoneum reduced and uterine manipulator was removed from the uterus. A Pfannenstiel skin incsion was made with a scalpel along the previous cesearean incision and the underlying subcutaneous tissue dissected using a Bovie electrocautery to the level of the rectus fascia. The rectus fascia was then nicked in the midline and the incision extended in transverse fashion using Bovie electrocautery. 2 Anabelle clamps were applied to the anterior rectus fascia and the underlying rectus muscles were dissected off of the fascia using blunt technique and Bovie electrocautery. A [place] self-retaining retractor was then placed into the incision and the bowels were made with moist laparotomy sponges. Uterus was grasped with a Brittaney clamp and the right and left uterine cornua were grasped with Elizabeth clamps respectively. Remnants of the left and right broad ligaments were sequentially double clamped transected and suture-ligated with 0 Vicryl to the level of the uterine arteries. The bladder flap was then carefully dissected off of the lower uterine segment using Bovie electrocautery. Once it was away from the operative field the remaining uterosacral ligament cardinal complex was subsequentially clamped transected and suture-ligated. 2 right angle clamps were put across the base of the body of the cervix and the cervix was amputated from the surrounding vaginal epithelium. The surgical specimen was passed off of the operative field and interupted sutures of 0 -Vicryl were placed at the right and left lateral margins of the vaginal cuff and held long for traction. The vaginal cuff was then closed with a running suture of 0 Vicryl in an imbricating fashion. The pelvis was then copiously irrigated with sterile normal saline. All pedicles sites were inspected and noted to be hemostatic. The irrigation was aspirated the laparotomy sponge were removed and the self-retaining tractor was removed. Rectus fascia was then reapproximated with 0 Vicryl in a running fashion beginning at the lateral margins and overlapping in the midline. Subcutaneous tissue was then closed with interrupted sutures of 2-0 Vicryl and the skin incision closed with 4-0 Monocryl in subcutaneous fashion. The rectus fascia of the previous umbilical port site was reapproximated with 0 Vicryl suture and the skin of all port sites closed with 4-0 Monocryl. All sponge lap and needle counts are correct x2 the patient was awakened extubated and transported recovery area in stable condition
[2020-10-25] MEDS: diphenhydrAMINE 50 MG/ML VIAL IVP (14:30)
[2020-10-25] MEDS: Normal Saline 10 ML VIAL IJ (14:31)
[2020-10-25] MEDS: Ketorolac 30 MG/ML VIAL IVP ×2 (16:06→21:51)
[2020-10-25] MEDS: oxyCODONE 5 mg/Acetaminophen 325 mg TAB PO (17:50)
[2020-10-25] MEDS: Docusate Sodium 100 MG CAP PO (21:51)
[2020-10-26 01:44] VITALS: BP 104/65; PULSE 78; TEMP 36.9
[2020-10-26] MEDS: Ketorolac 30 MG/ML VIAL IVP (05:00)
[2020-10-26] MEDS: oxyCODONE 5 mg/Acetaminophen 325 mg TAB PO ×2 (06:43→11:04)
--- NOTE | 2020-10-26 08:06 | DSE_ITS ---
Date of service: 10/26/20 Time of Service: 08:06 DS: Diagnosis Discharge Diagnosis (1) S/P total abdominal hysterectomy: Status: Acute (2) Abnormal uterine bleeding (AUB): Status: Acute (3) History of endometrial ablation: Status: Acute Discharge Plan Disposition Patient Disposition: HOME Condition: Fair Discharge Details Admit Date/Time: 10/25/20 10:14 Admit Provider: Isabel Parrish Attending Provider: Isabel Parrish Primary Care Provider: Deana Gurrola [place] [facility] Course Hospital Course: Patient was admitted the morning of surgery and underwent an attempted laparoscopic assisted vaginal hysterectomy that was converted to a total abdominal hysterectomy with left salpingectomy after significant scarring was encountered along the lower uterine segment and the bladder flap. Estimated blood loss at surgery: 300 cc. Final pathology is currently pending. Patient was discharged home postop day 1 at her request. She was tolerating regular diet voiding spontaneously and her pain was controlled with NSAIDs and Percocet. She will be discharged home with a prescription for Percocet 5/325 1 tablet every 6 hours as needed for pain and ibuprofen 600 mg every 6 hours as needed for pain. She was given instructions regarding no heavy lifting and decreased activity schedule. She will follow-up in approximately 2 weeks for postop check. Home Meds and New Rx's Prescriptions: No Action acetaminophen 500 MG tablet 1 - 2 tab PO Q4H PRN RF: 0 naproxen sodium [Aleve] 220 MG tablet 2 tab PO BID PRNRF: 0 sumatriptan succinate 25 MG tablet 25 mg PO ONCE Qty: 16 RF: 3 sertraline 50 mg tablet 50 mg PO DAILY Qty: 90 RF: 3 lisinopril 20 mg tablet 20 mg PO DAILY Qty: 90 RF: 3 Discharge Instructions Additional Instructions: Prescription for Percocet 5/325 will be faxed to your pharmacy. You can use [id number] ibuprofen 600 mg every 6 hours as needed for pain. You can expect a small amount of light bleeding from the vagina. Nothing in the vagina for 6 weeks including tampons. No driving for 2 weeks until you are evaluated by Dr. Parrish. Stand Alone Forms: DSU Post Gynecology Surgery Activity:: Activity as Tolerated Equipment/Supplies:: No Equipment Needed Diet:: As Tolerated DS: Summary Time Spent with Patient providing and/or coordinating discharge services: Less than 30 minutes Status at Discharge Functional status at discharge: independent ambulation Overall status at discharge: patient is progressing back to baseline Mental Status: mental status grossly normal Speech and Movement: speech and movement normal Mood: congruent mood Affect: normal affect Exam Const General: no acute distress Nutritional Appearance: obese Orientation: alert, awake and oriented x3 Resp Effort & Inspection: normal respiratory effort Auscultation: clear to auscultation bilaterally Cardio Rate: regular rate Rhythm: regular rhythm GI Inspection: abdominal wall ecchymosis (Right lateral margin of Pfannenstiel skin incision) and incision (Trocar sites clean dry and intact covered with skin glue) Palpation: soft, no guarding and tender General: deferred Skin General skin exam: no rashes or lesions noted Extrem General: normal to inspection and full ROM Psych Appearance: grossly normal Mental Status: mental status grossly normal Speech and Movement: speech and movement normal Mood: congruent mood Affect: normal affect Attitude: cooperative Thought Process: normal Thought Content: normal Insight: insight good Judgment: judgment good DS: Data Vitals/I&O Vitals and I&O: Vital Signs Temperature 98.5 F 10/26/20 01:44 Temperature Source Tympanic 10/26/20 01:44 Pulse 78 10/26/20 01:44 Pulse Rhythm Regular 10/25/20 20:05 Respiratory Rate 18 10/25/20 20:05 Respiratory Effort 10/25/20 20:05 Respiratory Depth Normal 10/25/20 20:05 Respiratory Pattern Normal 10/25/20 20:05 Blood Pressure 104/65 10/26/20 01:44 Pulse Oximetry 98 10/25/20 17:45 Respiratory End-tidal CO2 37 10/25/20 11:14 Oxygen Delivery Method Room Air 10/26/20 01:44 Oxygen Flow Rate 0 10/26/20 01:44 Pain Level 7 10/26/20 06:43 Intake & Output 10/25/20 10/25/20 10/26/20 11:59 23:59 11:59 Intake Total 1200 / 3290 2089 / 3289 1025 / 1025 Output Total 475 / 2425 1950 / 2425 700 / 700 Balance 725 / 865 140 / 865 325 / 325 Weight 269 lb 6.478 oz Intake: IV 1100 / 1100 1025 / 1025 Oral 100 / 2190 2089 / 2190 Output: Urine 125 / 2075 1950 / 2075 700 / 700 Estimated Blood Loss 350 / 350 Other: Urine Color Yellow Pale Urine Appearance Cloudy Clear Clear Urine Odor None Comment Cloudy upon arrival to unit, clear at this time. Emesis Description None Voiding Methods Toilet Data Completed and Pending Labs on day of discharge: Labs from last 24 hours 10/26/20 05:35 WBC Pending RBC Pending Hgb Pending Hct Pending MCV Pending MCH Pending MCHC Pending RDW Pending Plt Count Pending MPV Pending PFSH Medical History (Updated 10/25/20 @ 07:24 by Isabel Parrish MD) Abnormal uterine bleeding (AUB) Anxiety (02/21/16) Diverticulosis Essential hypertension (01/04/13) Family history of colon cancer (08/21/17) Mother - UC and Dx with colon ca at 40 Family history of ovarian cancer (08/03/15) pt's father's mother and 2 sisters w/ ovarian ca thyroid ca in family Hyperlipidemia Internal hemorrhoids without complication Menorrhagia with regular cycle Migraine Skin lesion of face Surgical History (Updated 10/26/20 @ 08:08 by Isabel Parrish MD) section (~2004) X 2 Colonoscopy planned (~01/22/18) History of endometrial ablation S/P total abdominal hysterectomy 10/26/20. Attempted LAVH converted to CESIA with L salpingectomy Tonsillectomy and adenoidectomy (~2006) Family History Mother Colon cancer also had UC Thyroid cancer Father Prostate cancer Essential hypertension Brother Adenomatous colon polyp Grandmother Breast cancer paternal Other Family history of colon cancer Family history of ovarian cancer Social History Smoking/Tobacco Use Status: Never Smoking risk assessment performed?: Yes Alcohol Intake: current Alcohol Intake frequency: holidays/special occasions only Drug use: Never Substance use type: does not use Do you feel safe at home: Yes Do you feel safe in your relationship?: Yes Female Reproductive History Menstrual control method: permanent sterilization History History 4 Para 2 Hx # Term Pregnancies Multiple births Hx # Pregnancies Ectopic pregnancies AB induced Hx Number of Living Children AB spontaneous
[2020-10-26] MEDS: Lisinopril 20 MG TAB PO (09:18)
[2020-10-26] MEDS: Docusate Sodium 100 MG CAP PO (09:18)
[2020-10-26] MEDS: Sertraline 50 MG TAB PO (09:18)
[2020-10-26 09:49] LABS: HCT 34.7 % (36.0-46.0); HGB 10.9 g/dL (11.2-15.7); MCH 27.1 pg (27.0-33.0); MCHC 31.4 % (32.0-36.0); MCV 86.3 fL (80-95); MPV 9.1 fL (8.0-11.0); Platelet Count 384 10^3/uL (130-400); RBC 4.02 10^6/uL (3.93-5.22); RDW 15.5 % (11.7-14.6); RDW-SD 49.1 fL; WBC 16.02 10^3/uL (4.4-10.8)
[2020-10-26 09:55] VITALS: BP 120/78; PULSE 82; RESP 16; TEMP 36.8; O2SAT 97
[2020-10-26] MEDS: Ibuprofen 600 MG TAB PO (11:03)
== END 2020-10-26 11:17 | disposition home or self-care (01) ==
LOC: SUR 11:30 → OBS 10-26 08:13
PROVIDERS: Admitting Provider Obstetrics & Gynecology Gynecology; PCP Family Medicine; Visit Provider Obstetrics & Gynecology Gynecology
PROC: 0UT9FZZ Resection of Uterus, Via Natural or Artificial Opening With Percutaneous Endoscopic Assistance (ICD-10-PCS; CPT 58150; principal; 2020-10-25 07:30)
DX: N84.0 Polyp of corpus uteri (principal); N80.0 Endometriosis of uterus; N72 Inflammatory disease of cervix uteri; N83.8 Other noninflammatory disorders of ovary, fallopian tube and broad ligament; N93.9 Abnormal uterine and vaginal bleeding, unspecified; N94.6 Dysmenorrhea, unspecified; Z53.31 Laparoscopic surgical procedure converted to open procedure; K43.9 Ventral hernia without obstruction or gangrene
CPT/HCPCS: 58150; 85027; 88307; J0690; J1100; J1200; J1885; J2001; J2250; J2370; J2405; J3010

== ENCOUNTER 2021-01-25 02:22 | Outpatient (CLI) | payer BC, SELFPAY ==
[2021-01-25 16:16] LABS: HCT 40.3 % (36.0-46.0); HGB 12.7 g/dL (11.2-15.7); MCH 26.1 pg (27.0-33.0); MCHC 31.5 % (32.0-36.0); MCV 82.9 fL (80-95); Platelet Count 479 10^3/uL (130-400); RBC 4.86 10^6/uL (3.93-5.22); RDW-SD 46.1 fL; WBC 9.25 10^3/uL (4.4-10.8)
[2021-01-26 08:48] LABS: Calculated LDL 189 mg/dL (<100); Cholesterol 267 mg/dL (<200); HDL Cholesterol 37 mg/dL (40-60); Triglyceride 208 mg/dL (<150)
== END 2021-01-25 02:23 | disposition home or self-care (01) ==
LOC: LBO 02:22
PROVIDERS: PCP Family Medicine; Visit Provider Family Medicine
DX: Z00.00 Encounter for general adult medical examination without abnormal findings (principal); I10 Essential (primary) hypertension; D64.9 Anemia, unspecified
CPT/HCPCS: 36415; 80061; 85027

== ENCOUNTER 2021-02-19 00:45 | Outpatient (CLI) | payer BC, SELFPAY ==
--- NOTE | 2021-02-19 07:30 | DI.MAMMO_ITS ---
Exam(s) MAMMO SCREENING EXAM: MAMMO SCREENING CLINICAL HISTORY: screening,Z12.39. TECHNIQUE: Bilateral full field digital CC and MLO mammographic images were obtained with 3D tomosyn thesis and utilizing computer aided detection (CAD). COMPARISON: None. This is a baseline mammogram on this 40-year-old. FINDINGS: There are no new spiculated masses nor malignant appearing microcalcification groups. There is no significant architectural distortion nor skin thickening-retraction. IMPRESSION: No radiographic evidence of malignancy. BI-RADS Category 1 - Negative Breast Density - Category B - Scattered areas of fibroglandular density Breast density Category C or D implies that the patient has dense breast tissue. Dense breast tissue can make it harder to find cancer on a mammogram. Dense breast tissue is also associated with an incr eased risk of breast cancer. This information about the result of the mammogram report was provided to the patient to raise their awareness. Use this report when you speak with the patient about their risks for breast cancer, which includes their family history. At that time, you may recommend additional screening tests (Ultrasoun d or MRI) as these tests may add significant information. A negative radiographic report should not delay biopsy if a dominant or clinically suspicious mass is present. Up to ten percent of cancers are not identified on mammography. A negative report may reinforce clinical impression. Adenosis and dense breasts may obscure an underlying neoplasm. False positive reports average 6 to 10%. Patient will receive a letter notifying them of these results.
== END 2021-02-19 01:05 ==
PROVIDERS: PCP Family Medicine; Visit Provider Family Medicine
DX: Z12.31 Encounter for screening mammogram for malignant neoplasm of breast (principal)
CPT/HCPCS: 77063; 77067

== ENCOUNTER 2021-05-04 00:24 | Outpatient (CLI) | payer BC, SELFPAY ==
--- NOTE | 2021-05-04 07:45 | DI.RAD_ITS ---
Exam(s) XR FOOT LT COMPLETE EXAM: XR FOOT LT COMPLETE CLINICAL HISTORY: left lateral foot pain,M79.672. TECHNIQUE: 2D digital imaging was performed of the left foot. Three images were obtained. AP, obli que and lateral views were obtained. COMPARISON: No exams were available for comparison FINDINGS: BONES: No acute fracture is present. No bony destructive lesion is seen. JOINTS: No dislocation present. Mild periarticular spurring is seen at the 1st MTP joint. SOFT TISSUE: Normal. IMPRESSION: Mild degenerative changes of the 1st MTP joint. No acute fracture or dislocation. DATA REPOSITORY: RADIATION DOSE DELIVERED:
--- NOTE | 2021-05-04 07:45 | DI.RAD_ITS ---
Exam(s) XR HEEL LT OS CALCIS EXAM: XR HEEL LT OS CALCIS CLINICAL HISTORY: left foot pain, left lateral foot and heel lateral,M79.672. TECHNIQUE: 2D digital imaging was performed. COMPARISON: No exams were available for comparison FINDINGS: BONES: No acute fracture is present. No bony destructive lesion is seen. JOINTS: No dislocation present. SOFT TISSUE: Normal. IMPRESSION: Unremarkable radiographs of the left calcaneus. DATA REPOSITORY: RADIATION DOSE DELIVERED:
== END 2021-05-04 00:44 ==
PROVIDERS: PCP Family Medicine; Visit Provider Physician Assistant
DX: M79.672 Pain in left foot (principal); M19.072 Primary osteoarthritis, left ankle and foot
CPT/HCPCS: 73630; 73650

== ENCOUNTER 2021-07-26 16:23 | Outpatient (REF) | payer BC, SELFPAY | END 2021-07-26 16:24 | disposition home or self-care (01) | LOC: LBN 16:23 | PROVIDERS: PCP Family Medicine; Visit Provider Physician Assistant | DX: Z20.822 Contact with and (suspected) exposure to COVID-19 (principal) | CPT/HCPCS: U0003 ==

== ENCOUNTER 2022-04-24 04:33 | Outpatient (CLI) | payer BC, SELFPAY ==
[2022-04-24 12:31] LABS: HCT 47.5 % (36.0-46.0); HGB 14.9 g/dL (11.2-15.7); MCH 27.3 pg (27.0-33.0); MCHC 31.4 % (32.0-36.0); MCV 87 fL (80-95); MPV 9.2 fL (8.0-11.0); Platelet Count 491 10^3/uL (130-400); RBC 5.45 10^6/uL (3.93-5.22); RDW 13.8 % (11.7-14.6); RDW-SD 44.4 fL; WBC 8.12 10^3/uL (4.4-10.8)
[2022-04-24 12:46] LABS: ALT 23 U/L (14-59); AST 20 U/L (15-37); Albumin 4.2 g/dL (3.4-5.0); Alkaline Phosphatase 72 U/L (46-116); Anion Gap 9.4 mmol/L (3-11); BUN 10 mg/dL (7-18); Bilirubin, Total 0.4 mg/dL (0.2-1.0); CO2 26.6 mmol/L (21.0-32.0); CREATININE 0.9 mg/dL (0.55-1.02); Calcium 9.8 mg/dL (8.5-10.1); Calculated LDL 231 mg/dL (<100); Chloride 102 mmol/L (98-107); Cholesterol 314 mg/dL (<200); Estimated GFR 81.35 (mL/min/1.73m2); Glucose 98 mg/dL (74-106); HDL Cholesterol 51 mg/dL (40-60); Potassium 4.2 mmol/L (3.5-5.1); Sodium 138 mmol/L (136-145); TSH (W/Ref FT4) 1.37 uIU/mL (0.36-3.74); Total Protein 8.1 g/dL (6.4-8.2); Triglyceride 161 mg/dL (<150)
== END 2022-04-24 04:34 | disposition home or self-care (01) ==
LOC: LOS 04:33
PROVIDERS: PCP Family Medicine; Visit Provider Family Medicine
DX: Z00.00 Encounter for general adult medical examination without abnormal findings (principal)
CPT/HCPCS: 36415; 80053; 80061; 85027; 84443

== ENCOUNTER 2023-02-13 02:13 | Outpatient (CLI) | payer OTHER, SELFPAY ==
[2023-02-13 12:28] LABS: HCT 44.1 % (36.0-46.0); HGB 14.2 g/dL (11.2-15.7); MCH 28.2 pg (27.0-33.0); MCHC 32.2 % (32.0-36.0); MCV 88 fL (80-95); Platelet Count 439 10^3/uL (130-400); RBC 5.03 10^6/uL (3.93-5.22); RDW-SD 45.2 fL; WBC 8.37 10^3/uL (4.4-10.8)
[2023-02-13 12:45] LABS: ALT 26 U/L (14-59); AST 23 U/L (15-37); Albumin 3.6 g/dL (3.4-5.0); Alkaline Phosphatase 72 U/L (46-116); BUN 10 mg/dL (7-18); Bilirubin, Total 0.5 mg/dL (0.2-1.0); CREATININE 0.8 mg/dL (0.55-1.02); Calcium 9.1 mg/dL (8.5-10.1); Calculated LDL 127 mg/dL (<100); Chloride 104 mmol/L (98-107); Cholesterol 194 mg/dL (<200); Estimated GFR 93.12 (mL/min/1.73m2); Glucose 98 mg/dL (74-106); HDL Cholesterol 48 mg/dL (40-60); Potassium 4.2 mmol/L (3.5-5.1); Sodium 139 mmol/L (136-145); TSH (W/Ref FT4) 0.86 uIU/mL (0.36-3.74); Total Protein 7.3 g/dL (6.4-8.2); Triglyceride 97 mg/dL (<150)
[2023-02-13 12:49] LABS: Hemoglobin A1C 5.9 % (<5.7)
[2023-02-18 08:30] LABS: Result Summary NEGATIVE; Specimen WB Whole Blood
== END 2023-02-13 02:14 | disposition home or self-care (01) ==
PROVIDERS: PCP Family Medicine; Visit Provider Family Medicine
DX: Z00.00 Encounter for general adult medical examination without abnormal findings (principal); E11.9 Type 2 diabetes mellitus without complications
CPT/HCPCS: 36415; 80053; 80061; 81256; 85027; 83036; 84443

== ENCOUNTER → 2023-03-03 00:39 | Outpatient (CLI) | payer OTHER, SELFPAY ==
--- NOTE | 2023-03-03 08:20 | DI.MAMMO_ITS ---
Exam(s) MAMMO SCREENING EXAM: MAMMO SCREENING CLINICAL HISTORY: screening,z12.39 TECHNIQUE: Bilateral full field digital CC and MLO mammographic images were obtained with 3D tomosyn thesis and utilizing computer aided detection (CAD). COMPARISON: Available for comparison. FINDINGS: Masses/Architectural Distortion: None seen. Microcalcifications: No suspicious pleomorphic-type are seen. Skin Thickening/Nipple Retraction: None. IMPRESSION: 1. No significant interval change with no specific features of malignancy noted. 2. Unless there is more urgent need, screening mammography is recommended, as per [employer] guidelines. BI-RADS Category 1 - Negative Breast Density - Category B - Scattered areas of fibroglandular density Breast density category C or D implies that the patient has dense breast tissue. Dense breast tissue is very common and is not abnormal but dense breast tissue can make it harder to find cancer on a ma mmogram. Also, dense breast tissue may increase their breast cancer risk. This information about the result of the mammogram report was provided to the patient to raise their awareness. Use this report when you speak with the patient about their risks for breast cancer, which includes their family hist ory. At that time, you may recommend for more screening tests (Ultrasound or MRI) as they might be us eful based on their risk. A negative radiographic report should not delay biopsy if a dominant or clinically suspicious mass is present. Up to ten percent of cancers are not identified on mammography. A negative report may reinforce clinical impression. Adenosis and dense breasts may obscure an underlying neoplasm. False positive reports average 6 to 10%. Patient will receive a letter notifying them of these results.
== END ==
PROVIDERS: PCP Family Medicine; Visit Provider Family Medicine
DX: Z12.31 Encounter for screening mammogram for malignant neoplasm of breast (principal)
CPT/HCPCS: 77063; 77067

== ENCOUNTER 2023-08-22 09:42 | Day surgery (SDC) | payer OTHER, SELFPAY ==
--- NOTE | 2023-08-21 23:11 | W.COLOREPORT ---
Date of service: 08/22/23 Time of Service: 13:23 Colonoscopy Report Date of procedure: 08/22/23 Pre-op diagnosis general: family History of ulcerative colitis and family history of colon cancer Post-op diagnosis procedure note: other (External hemorrhoids and diverticula) Surgeon: Estelle Randall Anesthesia Type: General:No Airway Estimated blood loss (mL): 1 Pathology: other Complications: None Disposition: same day Prep: Miralax/Dulcolax Retraction Time: 8 Procedure Description: After informed consent was obtained the patient was taken to the procedure room and placed in a left decubitous position. Monitors were applied and a time out was done. The patients name, date of , procedure, allergies to medications and metal in their body was reviewed. The patient was then sedated. Once sedated and comfortable a rectal exam was done. External exam reveals external hemorrhoids at the 6 o'clock position. There is no evidence of acute inflammation or thrombosis. Internal exam revealed a normal sphincter tone and no palpable masses. The scope was then introduced and retrofelexed. No internal hemorrhoids were identified. The scope was then advanced to the cecum difficulty. The TI and appendiceal orifice were identified. The scope was then slowly retracted over minutes back into the rectum. No polyps are identified today. Mucosa is pink and healthy with a normal vascular pattern. She has a few small scattered diverticula confined to the sigmoid colon with no signs of active bleeding or infection. Because of her family history of ulcerative screening biopsies were taken. These were removed with a cold biting forcep. All specimen is retrieved and no bleeding is noted. Biopsies are taken of the cecum/80/50/30 cm and the rectum. The scope was removed and the patient was woken up and taken back to Same day surgery in stable condition. The patient tolerated the procedure well and there were no immediate complications. Follow up: The patient should follow up in 5 years unless they develop changes in bowel habits or other new gastrointestinal complaints. [place] Bowel Prep [facility] Bowel Prep Right Colon: 3 Left Colon: 3 Transverse Colon: 3 Total Score: 9
--- NOTE | 2023-08-21 23:21 | PDOC.DSDIS_ITS ---
Date of service: 08/22/23 Time of Service: 13:27 Discharge Plan Disposition Patient Disposition: Home Condition: Good Discharge Details Reason For Visit: Colon scope Attending Provider: Estelle Randall Primary Care Provider: Deana Gurrola Home Meds and New Rx's Prescriptions: Continued acetaminophen 500 MG tablet 1 - 2 tab PO Q4H PRN naproxen sodium [Aleve] 220 MG tablet 2 tab PO BID PRN sertraline 100 mg tablet 100 mg PO DAILY Qty: 90 3RF lisinopril 20 mg tablet 20 mg PO DAILY Qty: 90 3RF atorvastatin 10 mg tablet 10 mg PO DAILY Qty: 90 4RF Discontinued bisacodyl [Dulcolax (bisacodyl)] 5 mg tablet,delayed release (DR/EC) 5 mg PO ONCE Qty: 4 0RF Rx Instructions: Colonoscopy Bowel Prep- Per Instructions polyethylene glycol 3350 17 gram/dose powder 238 g PO ONCE Qty: 238 0RF Rx Instructions: Colonoscopy Bowel Prep- Per Instructions Discharge Instructions Additional Instructions: DSU Colonoscopy Post- Op Instructions Instructions for Everyone who is given Anesthesia: For your safety, please do the following for the next twenty-four (24) hours: *Do Not operate a motor vehicle (car, truck, motorcycle, etc.) *Do Not drink alcoholic beverages or use any recreational drugs for the first 24 hours or while taking pain medications. The medications in your body may have a reaction that can be dangerous. *Do Not make any important decisions or sign any important papers. Findings: Few small scattered diverticula. Make sure you are moving your bowels on a regular basis and not straining to go to the bathroom. If you find you are having problems with constipation, then we recommend you start a fiber supplement such as Metamucil. Follow up: Repeat colonoscopy in 5 years time. 1. No lifting over 20 pounds or strenuous activity for the first 24 hours after your procedure. After 24 hours there are no restrictions on your activity but you may feel fatigued for a few days. 2. After you arrive home you may have a light meal and return to your normal diet as you can tolerate it without feeling sick to your stomach. 3. You may have a bloated, gaseous feeling in your belly (abdomen) after a colonoscopy. Passing gas and belching will help. Walking or lying down on your left side with your knees flexed may relieve the discomfort. Call the office at [phone] (Office) or [phone] (Hospital) right away if you notice any of the following: a.Vomiting of blood or ?coffee ground stools?. b.Rectal bleeding 1Tbsp, blood clots or continuous bleeding. c.Severe belly (abdominal) pain. d.A hard distended belly (abdomen) and an inability to pass gas. 4. Please don?t expect to have a normal BM (bowel movement) for 2-3 days after your procedure. 5. If there are questions regarding the findings of your procedure, please contact your doctor 6. If you are unable to contact your doctor with a problem, contact the hospital at [phone]. 7. Continue all your regular medications unless directed otherwise. I understand the above instructions and have no questions. Signature of Patient or Adult Escort Name of Responsible Adult Escort Signature of Nurse Date/Time Activity:: See above Diet:: See above Discharge Orders Discharge Orders: Discharge Order (Routine); Ordered 08/22/23 Ordered By: Estelle Randall DS: Diagnosis Discharge Diagnosis (1) Essential hypertension: Status: Acute (2) Hyperlipidemia: Status: Acute (3) Anxiety: Status: Acute (4) Diverticulosis: Status: Acute Asessment and Plan: The patient is seen and examined after their colonoscopy.? The patient has been able to pass gas.? They are not having abdominal pain.? They have been able to tolerate liquids and a snack.? They do not have any nausea or vomiting.? They are not having any chest pain or shortness of breath.??? They are not having any rectal bleeding. Their vital signs have been stable-see nursing notes. We discussed findings during their colonoscopy, and any biopsies that were done/polyps that were removed. The patient will be sent a letter with any biopsy results, and when to repeat the colonoscopy.-see discharge instructions. Patient was given explicit instructions to follow-up regarding colonoscopy-refer to discharge instructions.? We reviewed resumption of medications. Patient verbalized understanding and discharged in stable and satisfactory condition- See nursing notes. (5) Internal hemorrhoids without complication: (6) Menorrhagia with regular cycle: (7) Abnormal uterine bleeding (AUB):
[2023-08-22 09:50] VITALS: BP 126/90; PULSE 86; RESP 20; TEMP 36.5; O2SAT 97
[2023-08-22] MEDS: Lactated Ringers 1,000 ML 80 ML IV (10:29)
--- NOTE | 2023-08-22 11:06 | W.ANESPRE ---
General Info Date of Service Date Performed: 08/22/23 Height: 6 ft Weight: 114.8 kg Body Mass Index (BMI): 34.3 Surgical Procedure: Operation Date: 08/22/23 10:05 Proposed Procedure Side Surgeon p Maximus Randall DO Meds Allergies and Home Medications Allergies Allergy/AdvReac Type Severity Reaction Status Date / Time walnut Allergy Unknown Verified 08/22/23 10:06 Scallops AdvReac Mild Swelling Uncoded 08/22/23 10:06 and GI Home Medication Medication Instructions Recorded acetaminophen 500 mg tablet 1 - 2 tab PO Q4H PRN 06/25/12 naproxen sodium 220 mg tablet 2 tab PO BID PRN 07/12/13 (Aleve) lisinopril 20 mg tablet 20 mg PO DAILY #90 tab-caps 02/10/23 sertraline 100 mg tablet 100 mg PO DAILY #90 tab-caps 02/10/23 atorvastatin 10 mg tablet 10 mg PO DAILY #90 tabs 05/29/23 bisacodyl 5 mg tablet,delayed 5 mg PO ONCE Colonoscopy Bowel 07/30/23 release (Dulcolax (bisacodyl)) Prep #4 tabs polyethylene glycol 3350 17 238 g PO ONCE Colonoscopy Bowel 07/30/23 gram/dose oral powder Prep #238 grams Current Visit Medications: Current Medications Generic Name Dose Route Start Last Admin Trade Name Freq PRN Reason Stop Dose Admin Hyoscyamine Sulfate 0.125 mg 08/22/23 04:23 Hyoscyamine 0.125 Mg Sl/Oral/Chew SL 09/21/23 04:22 DIRECTED PRN Ringer's Solution 1,000 mls @ 80 mls/hr 08/22/23 06:00 08/22/23 10:29 IV 08/22/23 23:59 80 mls/hr INFUSION HEMALATHA Administration IV Miscellaneous Supplies 1 each 08/22/23 06:00 Iv Access IV 08/22/23 23:59 DIRECTED HEMALATHA Ondansetron HCl 4 mg 08/22/23 04:23 Ondansetron 4 Mg/2 Ml Vial IVP 09/21/23 04:22 Q4H PRN PRN Nausea / Vomiting Sodium Chloride 0 ml 08/22/23 06:00 Normal Saline Flush 10 Ml Syr IV 08/22/23 23:59 PRN PRN Sodium Chloride 0 ml 08/22/23 06:00 Normal Saline 10 Ml Vial IJ 08/22/23 23:59 DIRECTED PRN Sterile Water 0 ml 08/22/23 06:00 Water,Injection,Sterile 10 Ml Vial IJ 08/22/23 23:59 DIRECTED PRN PFSH Active Problems Active Problems: Problem Status Onset Code Annual physical exam Z00.00 Diverticulosis K57.90 Migraine G43.909 Hyperlipidemia E78.5 Essential hypertension 01/04/13 I10 Anxiety 02/21/16 F41.9 Medical History Medical History Anemia Encounter for annual physical exam Stress due to family tension Supraclavicular fossa fullness Abnormal uterine bleeding (AUB) Menorrhagia with regular cycle Costochondral chest pain Skin lesion of face Internal hemorrhoids without complication Family history of ovarian cancer (08/03/15) pt's father's mother and 2 sisters w/ ovarian ca thyroid ca in family Family history of colon cancer (08/21/17) Mother - UC and Dx with colon ca at 40 Surgical History Surgical History S/P total abdominal hysterectomy 10/26/20. Attempted LAVH converted to CESIA with L salpingectomy History of endometrial ablation Colonoscopy planned (~01/22/18) Tonsillectomy and adenoidectomy (~2006) section (~2004) X 2 Tobacco Smoking/Tobacco Use Status: Never Passive smoking exposure: Yes Second hand exposure: Yes Alcohol Alcohol Intake: current Alcohol intake frequency: a few times a week Alcohol type: beer and hard liquor Substance Use Substance use: Never Substance use type: does not use Prental History History 4 Para 2 Hx # Term Pregnancies Multiple births Hx # Pregnancies Ectopic pregnancies AB induced Hx Number of Living Children AB spontaneous Vital Signs and Lab Results Vital Signs Most Recent Vital Signs in EMR: Most Recent Vital Signs Temp Pulse Resp BP Pulse Ox 36.5 C 86 20 126/90 97 08/22/23 09:50 08/22/23 09:50 08/22/23 09:50 08/22/23 09:50 08/22/23 09:50 Lab Results Blood Type / Crossmatch: No Data to Display Complete Blood Count: No Data to Display Complete Metabolic Panel: No Data to Display Liver Function Panel: No Data to Display Coagulation Panel: No Data to Display Cardiac Panel: No Data to Display Arterial Blood Gas: No Data to Display Venous Blood Gas: No Data to Display Pancreas Panel: No Data to Display Thyroid Panel: No Data to Display Infectious Disease: No Data to Display Blood Cultures: No Data to Display Toxicology Panel: No Data to Display Panel: No Data to Display Anesthesia Assessment and Plan Anesthesia History Personal History: No History of Anesthesia Complications Family History: No Family History of Anesthesia Complications Exercise Tolerance Exercise Tolerance: Metabolic Equivalents>4 Pertinent Negatives Pertinent Negatives: No Symptoms of GERD, No Major Cardiovascular Symptoms or Complaints and No Major Pulmonary Symptoms or Complaints Cardiac & Pulmonary Exam Cardiac Exam: Normal S1/S2 Heart Sounds Pulmonary Exam: Clear Bilateral Breath Sounds Implantable Cardiac Device Does patient have a Pacemaker or an ICD?: No Airway Exam Known Difficult Airway: No Mallampati Class: 1 Mouth Opening: Normal (> 3cm) Thyromental Distance: Greater than 3 cm Neck Range of Motion: Full ROM Neck Circumference: Normal Teeth Condition: Normal Dentition ASA Classification ASA Score: ASA 2 Emergency Case?: No NPO Status NPO Status: NPO Clears >2 hours, Solids >8 hours Status Status: Negative HCG Anesthesia Plan Resuscitation Status: Full Code Anesthesia Technique: General Anesthesia Airway Planned: Natural Airway Monitors Used: Standard Monitors
[2023-08-22 11:07] VITALS: BMI 34.3
--- NOTE | 2023-08-22 12:38 | BOWEL_PTH ---
PATIENT: Suzie Hugo LOC: [facility] U#:[id number] AGE/SX: 42/F ROOM: RE08/22/[address]: Estelle Randall : 1980 BED: DIS: 08/22/2023 SPEC #: [id number] RECD: 08/22/23 17:03 STATUS: KATIA Michelle #: [id number] JOHNATHAN: 08/22/23 12:[address]: Estelle Randall DEPT: Surgical Specimen RECD BY: Kamilah Bashir ENTERED: 08/22/23 17:06 SP TYPE: Bowel OTHR DR: Deana Gurrola MD, DC Tissues: 1 - BIOPSY BOWEL 2 - BIOPSY BOWEL 3 - BIOPSY BOWEL 4 - BIOPSY BOWEL 5 - BIOPSY BOWEL Procedures: GROSS AND MICRO LEVEL 4 Comments: [id number]
[2023-08-22 12:55] VITALS: BP 124/94; PULSE 69; RESP 16; TEMP 36.1; O2SAT 97
[2023-08-22 13:25] VITALS: BP 119/90; PULSE 68; RESP 16; TEMP 36.2; O2SAT 99
--- NOTE | 2023-08-22 15:09 | W.ANESPOSTOP ---
Postoperative Evaluation Date, Time and Location Date Performed: 08/22/23 Time Performed: 12:55 Patient Location: Day Surgery Unit Vital Signs Most Recent Imported Vital Signs: Most Recent Vital Signs Temp Pulse Resp BP Pulse Ox 36.2 C L 68 16 119/90 99 08/22/23 13:25 08/22/23 13:25 08/22/23 13:25 08/22/23 13:25 08/22/23 13:25 Pain Score Most Recent Pain Score: Most Recent Pain Score Pain Level 0 08/22/23 13:25 Assessment Mental Status: Arousable with meaningful communication Airway and Respiratory Function: Patent airway with normal (patient baseline) respiratory exam Cardiovascular Function: Hemodynamically Stable Hydration Status: Adequately Hydrated Nausea & Vomiting: No Nausea or Vomiting Pain: Pt. Denies Any Pain Peripheral Nerve Block: Patient did not receive a nerve block
== END 2023-08-22 14:00 | disposition home or self-care (01) ==
PROVIDERS: PCP Family Medicine; Visit Provider Surgery
PROC: 0DJD8ZZ Inspection of Lower Intestinal Tract, Via Natural or Artificial Opening Endoscopic (ICD-10-PCS; CPT 45378; principal; 2023-08-22 10:00)
DX: K64.8 Other hemorrhoids; E78.5 Hyperlipidemia, unspecified; I10 Essential (primary) hypertension; Z80.0 Family history of malignant neoplasm of digestive organs; K57.32 Diverticulitis of large intestine without perforation or abscess without bleeding
CPT/HCPCS: 45380; 88305; J2001; J2704

== ENCOUNTER 2024-02-26 03:33 | Outpatient (CLI) | payer OTHER, SELFPAY ==
[2024-02-26 12:47] LABS: Hemoglobin A1C 5.9 % (<5.7)
[2024-02-26 12:54] LABS: ALT 20 U/L (14-59); AST 18 U/L (15-37); Albumin 3.6 g/dL (3.4-5.0); Alkaline Phosphatase 72 U/L (46-116); Anion Gap 9.3 mmol/L (3-11); BUN 11 mg/dL (7-18); Bilirubin, Total 0.36 mg/dL (0.2-1.0); CO2 25.7 mmol/L (21.0-32.0); CREATININE 0.9 mg/dL (0.55-1.02); Calcium 9.4 mg/dL (8.5-10.1); Calculated LDL 112 mg/dL (<100); Chloride 107 mmol/L (98-107); Cholesterol 188 mg/dL (<200); Estimated GFR 80.34 (mL/min/1.73m2); Glucose 103 mg/dL (74-106); HDL Cholesterol 53 mg/dL (40-60); Sodium 142 mmol/L (136-145); TSH (W/Ref FT4) 0.89 uIU/mL (0.36-3.74); Total Protein 7.1 g/dL (6.4-8.2); Triglyceride 115 mg/dL (<150)
== END 2024-02-26 03:34 | disposition home or self-care (01) ==
LOC: LOS 03:33
PROVIDERS: PCP Family Medicine; Visit Provider Family Medicine
DX: I10 Essential (primary) hypertension (principal); Z00.00 Encounter for general adult medical examination without abnormal findings; E11.9 Type 2 diabetes mellitus without complications; E03.9 Hypothyroidism, unspecified
CPT/HCPCS: 36415; 80053; 80061; 83036; 84443

== ENCOUNTER 2024-03-31 02:14 | Outpatient (CLI) | payer OTHER, SELFPAY ==
--- NOTE | 2024-03-31 13:12 | DI.MAMMO_ITS ---
Exam(s) MAMMO SCREENING EXAM: MAMMO SCREENING CLINICAL HISTORY: screening,z12.39 TECHNIQUE: Mammograms were interpreted according to the usual protocol including computer analysis w [employer] CAD system, tomosynthesis and C-view imaging. COMPARISON: 2020 and 2022 FINDINGS: The breasts are composed of mainly fatty density , Breast Density category A. No suspicious masses or suspicious microcalcifications are seen. No skin thickening or abnormal axillary lymph nodes are seen. There has been no significant change from prior exams. IMPRESSION: BI-RADS Category 1, Negative mammogram Yearly screening mammography is recommended. Breast Density - Category A, fatty density. A negative radiographic report should not delay biopsy if a dominant or clinically suspicious mass is present. Up to ten percent of cancers are not identified on mammography. A negative report may reinforce clinical impression. Adenosis and dense breasts may obscure an underlying neoplasm. False positive reports average 6 to 10%. Patient will receive a letter notifying them of these results.
== END 2024-03-31 02:34 ==
LOC: DI 02:14
PROVIDERS: PCP Family Medicine; Visit Provider Family Medicine
DX: Z12.31 Encounter for screening mammogram for malignant neoplasm of breast (principal); R92.313 Mammographic fatty tissue density, bilateral breasts
CPT/HCPCS: 77063; 77067

== ENCOUNTER 2024-08-11 08:50 | Outpatient (CLI) | payer OTHER, SELFPAY ==
--- NOTE | 2024-08-11 08:45 | DI.RAD_ITS ---
Exam(s) XR SHOULDER LT COMPLETE 2+V EXAM: XR SHOULDER LT COMPLETE 2+V CLINICAL HISTORY: shoulder pain, TOS, pain in l shoulder M25.512. TECHNIQUE: 2D digital imaging was performed. Three views. COMPARISON: No exams were available for comparison FINDINGS: BONES: No acute fracture is present. No bony destructive lesion is seen. JOINTS: No dislocation present. No significant degenerative changes. SOFT TISSUE: Normal. IMPRESSION: Unremarkable radiographs of the left shoulder. DATA REPOSITORY: RADIATION DOSE DELIVERED:
--- NOTE | 2024-08-11 08:45 | DI.RAD_ITS ---
Exam(s) XR CERVICAL SPINE COMP 4-5V EXAM: XR CERVICAL SPINE COMP 4-5V CLINICAL HISTORY: ? cervical rib C7,8 numbness, cervical pain (neck) M54.2. TECHNIQUE: 2D digital imaging was performed. Five views were performed. COMPARISON: CR XR shoulder RT complete 2+V from 05/27/2018 FINDINGS: BONES: No fracture or destructive lesion. Vertebral bodies are unremarkable. There are mild facet j oint degenerative changes. No neural foraminal narrowing. No evidence of a cervical rib. DISKS: Intervertebral disc spaces are maintained. Minimal endplate osteophytes. ALIGNMENT: Cervical spinal alignment is within normal limits. The odontoid and atlantoaxial articulat ions are normal. SOFT TISSUE: Normal. The lung apices are clear. IMPRESSION: Mild degenerative changes. DATA REPOSITORY: RADIATION DOSE DELIVERED:
== END 2024-08-11 09:10 ==
LOC: DI 08:51
PROVIDERS: PCP Family Medicine; Visit Provider Family Medicine
DX: M54.2 Cervicalgia (principal); M25.512 Pain in left shoulder
CPT/HCPCS: 72050; 73030

== ENCOUNTER 2024-10-05 01:47 | Outpatient (CLI) | payer OTHER, SELFPAY ==
--- NOTE | 2024-10-05 06:30 | DI.MRI_ITS ---
Exam(s) MR UPPER JOINT LT WO EXAM: MR UPPER JOINT LT WO CLINICAL HISTORY: supraspinatus tear, failed conservative care,lt shoulder pain,m25.512,. TECHNIQUE: Multiplanar multisequence MRI was performed. COMPARISON: CR XR SHOULDER LT COMPLETE 2+V from 08/11/2024 FINDINGS: BONES: There is no fracture. There is hyperintense signal seen in the distal clavicle and the acromion. While this may be degenerative in nature, contusion cannot be excluded. JOINTS: There are mild degenerative changes seen at the acromioclavicular joint. The glenohumeral joint is normal. No joint effusion is present. TENDONS: Supraspinatus: There is hyperintense signal seen in the supraspinatus tendon on both the coronal and the sagittal images which may represent a small partial tear. Infraspinatus: There is tendinosis of the infraspinatus tendon. There is no evidence of a tendon tear. Subscapularis: Unremarkable. Teres Minor: Unremarkable. Biceps and Early: Unremarkable. MUSCLES: Unremarkable. No evidence of muscular fatty atrophy. GLENOID LABRUM: Unremarkable on this noncontrast examination. SOFT TISSUES: Unremarkable. LIGAMENTS: Unremarkable. OTHER: Subacromial and subdeltoid bursae are unremarkable. IMPRESSION: 1. Mild degenerative changes seen at the acromioclavicular joint. 2. There is hyperintense signal seen on the T2 weighted images in the distal clavicle and the acromion. While this may be a component of the degenerative changes, contusion should also be considered. No fracture is identified. 3. Findings suspicious for small partial tear in the supraspinatus tendon. DATA REPOSITORY:
== END 2024-10-05 02:07 ==
LOC: DI 01:47
PROVIDERS: PCP Family Medicine; Visit Provider Family Medicine
DX: M75.112 Incomplete rotator cuff tear or rupture of left shoulder, not specified as traumatic (principal); M25.512 Pain in left shoulder
CPT/HCPCS: 73221

== ENCOUNTER 2024-11-12 06:57 | Day surgery (SDC) | payer OTHER, SELFPAY ==
[2024-11-12] VITALS (36 sets, daily range): BP systolic 95–139; BP diastolic 60–92; PULSE 68–81; RESP 11–19; TEMP 36.1–36.6; O2SAT 83–98; BMI 36.6
--- NOTE | 2024-11-12 07:20 | W.PM.DSUDISC ---
Date of service: 11/12/24 Discharge Plan Disposition Patient Disposition: Home Condition: Stable Discharge Details Attending Provider: Yvon De Anda Primary Care Provider: Deana Gurrola Home Meds and New Rx's Prescriptions: New naproxen 250 mg tablet 250 - 500 mg PO BID PRN (Reason: moderate pain and swelling) Qty: 40 0RF oxycodone 5 mg tablet 5 - 10 mg PO .q4-6h MDD 30 mg PRN (Reason: severe pain) Qty: 18 0RF Continued atorvastatin 10 mg tablet 10 mg PO DAILY Qty: 90 4RF lisinopril 20 mg tablet 20 mg PO DAILY Qty: 90 3RF sertraline 100 mg tablet 100 mg PO DAILY Qty: 90 3RF acetaminophen 500 MG tablet 1 - 2 tab PO Q4H PRN Zepbound 2.5 mg/0.5 mL pen injector 2.5 mg subcut QWEEK Qty: 6 4RF Patient Comments: pt has not started yet Discontinued naproxen sodium [Aleve] 220 MG tablet 2 tab PO BID PRN Discharge Instructions Additional Instructions: Surgery: Left shoulder arthroscopy with limited debridement (partial articular supraspinatus tendon tear), subacromial decompression, and distal clavicle excision 11/12/24 Activity: You should gradually increase range of motion and use of your shoulder. No heavy lifting, reaching overhead, or lifting away from body for approximately 2-3 months. You may use the sling whenever you are out of the house for a few weeks. At home it is best to remove the sling and rest the arm on a pillow at your side or support the operative side with your other hand. A physical therapy prescription will be sent electronically to start in about 3 weeks. Prescriptions: Naproxen 250 mg take 1-2 every 12 hours with a meal as needed for moderate pain Oxycodone 5 mg take 1-2 every 4-6 hours as needed for severe pain You may use [id number] Tylenol (acetaminophen) as needed for mild pain. These pain medications may be taken all at once or in different combinations as needed. Also, recommend Colace (docusate) as a stool softener as surgery and pain medicine cause constipation. You may try bzsh-jas-obylnim diphenhydramine (Benadryl) 25-50 mg nightly as a sleep aid Dressings: Remove shoulder bandage after 3 days. Leave the sticky Steri-Strips in place until they fall off or remove them after you shower. Cover the incisions with Band-Aids or leave them open to air. You may shower after 5 days. Follow-up: 10-[address] De Anda You may take off the leg compression stockings this evening at home. You may also leave them on a few days longer if you have a history of leg swelling or edema. Let us know right away if you develop any redness, drainage, fevers, chest pain, or trouble breathing. Do not drink alcohol or drive for at least 24 hours after anesthesia. Please call the office during business hours with any questions or concerns. Discharge Orders Discharge Orders: Discharge Order (Routine); Ordered 11/12/24 Ordered By: Puja Sanchez DS: Diagnosis Discharge Diagnosis (1) Pain in left acromioclavicular joint: Status: Acute
[2024-11-12] MEDS: Lactated Ringers 1,000 ML 30 ML IV (07:59)
--- NOTE | 2024-11-12 08:19 | W.ANESPRE ---
General Info Date of Service Date Performed: 11/12/24 Height: 5 ft 11.5 in Weight: 121 kg Body Mass Index (BMI): 36.6 Surgical Procedure: Operation Date: 11/12/24 08:55 Proposed Procedure Side Surgeon p Shoulder Arthroscopy w/ any Indicated Debridement, Subacromial Decompression, Distal Clavicle Excision Left Yvon De Anda MD Meds Allergies and Home Medications Allergies Allergy/AdvReac Type Severity Reaction Status Date / Time walnut Allergy Unknown Verified 11/12/24 07:17 Home Medication ?Medication ?Instructions ?Recorded acetaminophen 500 mg tablet 1 - 2 tab PO Q4H PRN 06/25/12 naproxen sodium 220 mg tablet 2 tab PO BID PRN 07/12/13 (Aleve) atorvastatin 10 mg tablet 10 mg PO DAILY #90 tabs 03/15/24 lisinopril 20 mg tablet 20 mg PO DAILY #90 tab-caps 03/15/24 sertraline 100 mg tablet 100 mg PO DAILY #90 tab-caps 03/15/24 Zepbound 2.5 mg/0.5 mL 2.5 mg (0.5 mL) subcut QWEEK #6 mL 11/05/24 subcutaneous pen injector (tirzepatide (weight loss)) Current Visit Medications: Current Medications Generic Name Dose Route Start Last Admin Trade Name Freq PRN Reason Stop Dose Admin Ringer's Solution 1,000 mls @ 30 mls/hr 11/12/24 06:00 11/12/24 07:59 IV 11/12/24 23:59 30 mls/hr INFUSION HEMALATHA Administration Cefazolin Sodium 3,000 mg/ 100 mls @ 200 mls/hr 11/12/24 06:00 Sodium Chloride IV 11/12/24 23:59 PREOP HEMALATHA Tranexamic Acid/Sodium Chloride 1,000 mg in 100 mls @ 600 mls/hr 11/12/24 06:00 IVPB 11/12/24 23:59 PREOP HEMALATHA IV Miscellaneous Supplies 1 each 11/12/24 06:00 Iv Access IV 11/12/24 23:59 DIRECTED HEMALATHA Oxycodone HCl 0 mg 11/12/24 07:19 Oxycodone 5 Mg Tab PO 12/12/24 07:18 Q3H PRN PRN Pain Sodium Chloride 0 ml 11/12/24 06:00 Normal Saline Flush 10 Ml Syr IV 11/12/24 23:59 PRN PRN Sodium Chloride 0 ml 11/12/24 06:00 Normal Saline 10 Ml Vial IJ 11/12/24 23:59 DIRECTED PRN Sterile Water 0 ml 11/12/24 06:00 Water,Injection,Sterile 10 Ml Vial IJ 11/12/24 23:59 DIRECTED PRN PFSH Active Problems Active Problems: Problem Status Onset Code Cubital tunnel syndrome on left Acute G56.22 Left rotator cuff tear Acute M75.102 Pain in left acromioclavicular joint Acute M25.512 TOS (thoracic outlet syndrome) Acute G54.0 Cervical radicular pain Acute M54.12 Shoulder pain, left Acute M25.512 Cervical pain (neck) Acute M54.2 Allergy Acute T78.40XA Annual physical exam Acute Z00.00 Diverticulosis Acute K57.90 Migraine Acute G43.909 Hyperlipidemia Acute E78.5 Essential hypertension Acute 01/04/13 I10 Anxiety Acute 02/21/16 F41.9 Medical History Medical History Anemia Encounter for annual physical exam Stress due to family tension Supraclavicular fossa fullness Abnormal uterine bleeding (AUB) Menorrhagia with regular cycle Costochondral chest pain Skin lesion of face Internal hemorrhoids without complication Family history of ovarian cancer (08/03/15) pt's father's mother and 2 sisters w/ ovarian ca thyroid ca in family Family history of colon cancer (08/21/17) Mother - UC and Dx with colon ca at 40 Surgical History Surgical History S/P total abdominal hysterectomy 10/26/20. Attempted LAVH converted to CESIA with L salpingectomy History of endometrial ablation Colonoscopy planned (~08/2023) Tonsillectomy and adenoidectomy (~2006) section (~2004) X 2 Tobacco Smoking/Tobacco Use Status: Never Passive smoking exposure: Yes Second hand exposure: Yes Alcohol Alcohol Intake: current Alcohol intake frequency: a few times a week Alcohol type: beer and hard liquor Substance Use Substance use: Never Substance use type: does not use Prental History History 4 Para 2 Hx # Term Pregnancies Multiple births Hx # Pregnancies Ectopic pregnancies AB induced Hx Number of Living Children AB spontaneous Vital Signs and Lab Results Vital Signs Most Recent Vital Signs in EMR: Most Recent Vital Signs Temp Pulse Resp BP Pulse Ox 36.6 C 81 18 139/92 H 97 11/12/24 07:18 11/12/24 07:18 11/12/24 07:18 11/12/24 07:18 11/12/24 07:18 Anesthesia Assessment and Plan Anesthesia History Personal History: No History of Anesthesia Complications Family History: No Family History of Anesthesia Complications Exercise Tolerance Exercise Tolerance: Metabolic Equivalents>4 Pertinent Negatives Pertinent Negatives: No Symptoms of GERD Cardiac & Pulmonary Exam Cardiac Exam: Normal S1/S2 Heart Sounds Pulmonary Exam: Clear Bilateral Breath Sounds Implantable Cardiac Device Does patient have a Pacemaker or an ICD?: No Airway Exam Known Difficult Airway: No Mallampati Class: 1 ((+) TMJ on left) Mouth Opening: Normal (> 3cm) Thyromental Distance: Greater than 3 cm Neck Range of Motion: Full ROM Neck Circumference: Normal Teeth Condition: Normal Dentition ASA Classification ASA Score: ASA 2 Emergency Case?: No NPO Status NPO Status: NPO Clears >2 hours, Solids >8 hours Status Status: Not Relevant due to Medical History and History of Hysterectomy Anesthesia Plan Resuscitation Status: Full Code Anesthesia Technique: General Anesthesia Airway Planned: Endotracheal Tube Monitors Used: Standard Monitors and SedLine
--- NOTE | 2024-11-12 09:22 | ROE_ITS ---
Operative Note Operative Note PRE-OP DIAGNOSIS: Left: 1. AC joint pain 2. Bursitis 3. Partial supraspinatus rotator cuff tear POST-OP DIAGNOSIS: same PROCEDURE: Left: 1. Arthroscopic distal clavicle excision, CPT# 55298. This involved arthroscopically exposing the underside of the acromioclavicular joint and the subacromial space, smoothing out bone spurs, and removing approximately 5 mm of the distal clavicle so there was no bone left engaging the acromion. 2. Subacromial decompression with partial acromioplasty, CPT# 53941. This involved using arthroscopic power instruments and a radiofrequency wand to complete a bursectomy and smooth the undersurface of the acromion. The medial margin of the acromion at the AC joint was also resected in this case due to the AC joint pain and edema abnormalities on MRI. 3. Limited debridement, CPT #93867: This involved work in the glenohumeral joint with the mechanical shaver debriding the partial articular supraspinatus tendon tearing to a stable margin. SURGEON: Yvon De Anda TEST CELL TECHNICIAN: Puja Sanchez ANESTHESIA TYPE: Local By Surgeon, General LMA/ETT and Primary Nerve Block Refer to Anesthesia Record ESTIMATED BLOOD LOSS: 5 PATHOLOGY: none sent COMPLICATIONS: None Patient was transported to: PACU Patient's condition: stable Implants: None Indications: The patient was diagnosed with the above conditions and appropriately indicated for surgical intervention. Please see complete medical record for details. Findings: Exam under anesthesia: Full range of motion, no instability, stable distal clavicle Glenohumeral joint: Normal healthy cartilage, labrum, biceps, and subscapularis and infraspinatus. Normal inferior axillary recess. Mild central supraspinatus articular margin fraying and partial tearing with slight moderate involvement and a very small area most centrally. Subacromial space: Moderate bursitis. Moderately inflamed impinging distal clavicle and medial acromion and AC joint. Intact bursal rotator cuff with only mild surface fraying Procedure Description: In the operating room, general anesthesia was induced. Bilateral shoulders were examined. The patient was positioned in the beachchair position. All bony prominences were well-padded. Preoperative antibiotics were administered. The shoulder was prepped and draped in the usual sterile fashion. The correct patient, procedure, and side of the procedure were all verified prior to incision. Starting through the posterior portal a standard complete diagnostic arthroscopy was performed of the glenohumeral joint including inspection of the long head of the biceps, anterior and superior labrum, subscapularis tendon, supraspinatus and infraspinatus tendons, and axillary recess. The glenoid and humeral head cartilage as well as the posterior labrum were inspected from an anterior viewing portal. Significant findings and interventions noted above. The limited debridement of the glenohumeral joint involved the mechanical shaver trimming fraying and debriding the torn edges and fibers of the central articular sided supraspinatus tendon tearing carefully until more stable healthy tissue was left as the remaining margin. The tendon was probed and remained stable. There was no significant footprint involvement Starting through the posterior portal, the arthroscope was directed into the subacromial space. A lateral 50 yard line lateral portal was created. A combination of power instruments and a radiofrequency ablator were used to debride bursitis anteriorly, posteriorly, and laterally as well as expose and smooth bone spurring on the undersurface of the acromion. The coracoacromial ligament was partially released. The bursectomy was completed viewing laterally and working from posteriorly and the rotator cuff was thoroughly inspected with findings noted above. The anterior portal was redirected towards the undersurface of the AC joint. A shaver and electrocautery device were used to clear soft tissue from the undersurface of the AC joint. The distalmost 5 mm of the distal clavicle was then removed and smoothed. Similarly, the medial margin of the acromion was also removed and smooth. Care was taken to alternate working and viewing portals to ensure that proper amount of bone was removed and there was no abnormal or engaging bone left behind. The shoulder was drained of arthroscopic fluid. All portal sites were copiously irrigated. These incisions were closed using 3-0 Monocryl in a buried fashion and then covered with Mastisol, Steri-Strips, Xeroform, dry gauze, and ABDs. The dressings were covered and secured with Medipore tape. The operative extremity was placed into a sling for immobilization. The patient awoke from anesthesia without complication and was transferred to the recovery room in a stable condition. Date of Procedure: 11/12/24
[2024-11-12] MEDS: ceFAZolin 3,000 MG in Normal Saline 100 ML 200 MG IV (09:32)
[2024-11-12] MEDS: TRANEXAMIC ACID/SOD. CHL. 1,000 MG/100 ML BAG 600 MG IVPB (09:55)
[2024-11-12] MEDS: EPINEPHrine 10 MG/10 ML ML (10:08)
[2024-11-12] MEDS: Bupivacaine 0.25% Pres-Free W/EPI 30 ML VIAL (10:08)
--- NOTE | 2024-11-12 10:13 | W.ANESNERVE ---
Nerve Block Single Injection Procedure Date and Time Date Performed: 11/12/24 Procedure Start: 09:10 Location Where Procedure Performed Procedure Location: Day Surgery Unit Reason Performed: Postoperative Analgesia Requesting Provider: Yvon De Anda Timeout Performed Timeout Performed: Yes Monitoring Used ECG, Blood Pressure, SpO2, ETCO2 and See EMR for corresponding vital signs Sterility Sterility: Hand Hygiene, Surgical Cap, Surgical Mask, Sterile Gloves, Sterile Drape/Sheet, Eye Protection and Chlorhexidine Sedation Given During Procedure Sedation Given (Indicate Dose Given): Versed IV Dose:: 2mg IVP Patient Mental Status Patient Mental Status: Sedate with meaningful communication Nerve Block 1st Nerve Block: Laterality: Left Block Type: Interscalene Ultrasound Image Saved?: Yes Needle / Catheter Used: 80mm SonoPlex II Local Anesthetic Bolus (Indicate Dose Given): Lidocaine used for local infiltration of skin, Bupivacaine 0.5% Dose:: 10cc/0.5% (50mg) and Exparel Dose:: 10cc/1.3% (133mg) Additives (Indicate Dose Given): Epinephrine to make 1:200,000 (5mcg/ml) Dose:: 50mcg (added to 10cc 0.5% Bupivacaine) Ultrasound: Sterile probe cover and gel used Nerve Stimulator: Supplement to Ultrasound use Paresthesia: None Procedure Tolerated: No Complications and Patient tolerated well Procedure Outcome: Successful Performed By: Sheng Johnson
[2024-11-12] MEDS: Droperidol 5 MG/2 ML VIAL 0.625 MG IVP (11:58)
--- NOTE | 2024-11-12 12:30 | W.ANESPOSTOP ---
Postoperative Evaluation Date, Time and Location Date Performed: 11/12/24 Time Performed: 12:30 Patient Location: PACU Vital Signs Most Recent Imported Vital Signs: Most Recent Vital Signs Temp Pulse Resp BP Pulse Ox 36.1 C L 72 12 112/75 92 11/12/24 12:22 11/12/24 12:22 11/12/24 12:22 11/12/24 12:22 11/12/24 12:22 Pain Score Most Recent Pain Score: Most Recent Pain Score Pain Level 0 11/12/24 12:22 Assessment Mental Status: Awake (Alert & Oriented to Patient Baseline) Airway and Respiratory Function: Patent airway with normal (patient baseline) respiratory exam Cardiovascular Function: Hemodynamically Stable Hydration Status: Adequately Hydrated Nausea & Vomiting: No Nausea or Vomiting Pain: Pt. Denies Any Pain Peripheral Nerve Block: Regional nerve block not resolved at time of post operative discharge
== END 2024-11-12 13:38 | disposition home or self-care (01) ==
PROVIDERS: PCP Family Medicine; Visit Provider Student in an Organized Health Care Education/Training Program
PROC: (CPT 29805; principal; 2024-11-12 08:45)
DX: M25.512 Pain in left shoulder (principal); M75.52 Bursitis of left shoulder; M75.112 Incomplete rotator cuff tear or rupture of left shoulder, not specified as traumatic
CPT/HCPCS: 29822; 29824; 29826; 64415; J0131; J0166; J0665; J0666; J0690; J1100; J1790; J1885; J2003; J2250; J2405; J2704

== ENCOUNTER 2024-11-23 11:47 | Observation (INO) | payer OTHER, SELFPAY ==
[2024-11-23] VITALS (21 sets, daily range): BP systolic 103–134; BP diastolic 72–88; PULSE 74–109; RESP 7–20; TEMP 36.2–37; O2SAT 95–100
--- NOTE | 2024-11-23 12:00 | DI.US_ITS ---
Exam(s) US UPPER EXTREMITY VENOUS LT EXAM: US UPPER EXTREMITY VENOUS LT CLINICAL HISTORY: LUE redness, swelling and pain TECHNIQUE: GRAYSCALE, COLOR, DOPPLER IMAGING OF THE VENOUS SYSTEM OF THE UPPER EXTREMITY-BILATERAL COMPARISON: US POCUS EXAM from 11/12/2024 FINDINGS: Basilic vein: Patent. Normal color-flow and normal compression and augmentation properties. Brachial vein(s):Patent. Normal color flow. Normal compression and augmentation properties. Cephalic vein:Patent. Normal color flow. Normal compression and augmentation properties. Axillary vein: Patent. Normal color flow. Normal compression and augmentation properties. Visualized subclavian vein: Abnormal. There appears to be nonocclusive thrombus in the subclavian vein measuring approximately 2 cm length. IMPRESSION: 1. 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 DATA REPOSITORY:
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
[2024-11-23 13:38] LABS: Abs Immature Grans 0.07 10^3/uL (0.0-0.06); HCT 46.4 % (36.0-46.0); HGB 15.0 g/dL (11.2-15.7); Immature Grans % 0.5 %; MCH 28.0 pg (27.0-33.0); MCHC 32.3 % (32.0-36.0); MCV 87 fL (80-95); MPV 8.6 fL (8.0-11.0); Platelet Count 513 10^3/uL (130-400); RBC 5.35 10^6/uL (3.93-5.22); RDW 13.2 % (11.7-14.6); RDW-SD 41.1 fL; WBC 12.99 10^3/uL (4.4-10.8)
[2024-11-23 13:40] LABS: ESR 10 mm/hr (0-20)
[2024-11-23 13:57] LABS: ALT 21 U/L (14-59); AST 12 U/L (15-37); Albumin 3.6 g/dL (3.4-5.0); Alkaline Phosphatase 70 U/L (46-116); Anion Gap 8.1 mmol/L (3-11); BUN 13 mg/dL (7-18); Bilirubin, Total 0.5 mg/dL (0.2-1.0); CO2 26.9 mmol/L (21.0-32.0); Calcium 9.1 mg/dL (8.5-10.1); Chloride 104 mmol/L (98-107); Estimated GFR 70.36 (mL/min/1.73m2); Glucose 109 mg/dL (74-106); Potassium 3.8 mmol/L (3.5-5.1); Sodium 139 mmol/L (136-145); Total Protein 7.0 g/dL (6.4-8.2)
[2024-11-23 14:04] LABS: C-Reactive Protein < 0.50 mg/dL (<or=0.5)
[2024-11-23] MEDS: Acetaminophen 500 MG TAB 1000 MG PO ×2 (14:25→20:48)
[2024-11-23] MEDS: Normal Saline 1,000 ML 1000 ML IV (14:27)
[2024-11-23] MEDS: Ketorolac 15 MG/ML VIAL IVP (14:28)
[2024-11-23] MEDS: Famotidine 20 MG/2 ML VIAL IVP (14:30)
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
[2024-11-23] MEDS: Apixaban 5 MG TAB 10 MG PO ×2 (15:10→20:49)
[2024-11-23] MEDS: diphenhydrAMINE 50 MG/ML VIAL 25 MG IVP (15:22)
[2024-11-23] MEDS: MORPHine 4 MG/ML SYR IVP (15:25)
[2024-11-23 15:37] LABS: INR 1.0 (0.9-1.1); PTT Activated 24.3 sec (20.6-30.2); Prothrombin Time 10.4 sec (9.1-11.1)
--- NOTE | 2024-11-23 17:02 | W.PC.ACHO ---
Registration Status: ADM IN Primary Language: Preferred Language: Estonian ED Information & Data Chief Complaint RashLesion 11/23/24 13:15 Triage Note Pt had recent shoulder 11/23/24 11:53 surgery. Rash began last week, spreading down arm Friday, and now all the way down her arm. Extremely itchy and spreading down entire right arm. Maculopapular. Pt stopped Keflex yesterday due to concerns this may be allergic. Took benadryl at 10 this AM. LS clear, no angioedema. Medical / Surgical History (Last Reviewed 11/12/24 @ 07:19 by Belinda Holliday, RN) Anemia Encounter for annual physical exam Stress due to family tension Supraclavicular fossa fullness Abnormal uterine bleeding (AUB) Menorrhagia with regular cycle Costochondral chest pain Skin lesion of face Internal hemorrhoids without complication Family history of ovarian cancer (08/03/15) Family history of colon cancer (08/21/17) (Last Reviewed 11/12/24 @ 07:19 by Belinda Holliday, RN) S/P total abdominal hysterectomy History of endometrial ablation Colonoscopy planned (~08/2023) Tonsillectomy and adenoidectomy (~2006) section (~2004) Most Recent Vital Signs Temperature 36.2 C L 11/23/24 16:26 Temperature Source Tympanic 11/23/24 11:53 Pulse 76 11/23/24 16:26 Pulse Rhythm Regular 11/23/24 16:26 Pulse 81 11/23/24 16:00 Respiratory Rate 16 11/23/24 16:26 Respiratory Effort Normal 11/23/24 16:26 Respiratory Depth Normal 11/23/24 16:26 Respiratory Pattern Normal 11/23/24 16:26 Blood Pressure 122/82 11/23/24 16:26 Blood Pressure Mean 83 11/23/24 15:18 Blood Pressure Position Sitting 11/23/24 11:53 Pulse Oximetry 97 11/23/24 16:26 Oxygen Delivery Method Room Air 11/23/24 16:26 Oxygen Flow Rate 0 11/23/24 16:26 Pain Level 4 11/23/24 16:26 Allergies walnut Allergy (Verified 11/22/24 13:46) Unknown Mouth swelling and numbness IV IV Catheter Type [Right Saline Lock Forearm] IV Catheter Gauge [Right 18 Forearm] Diet Orders Category Date Time Status Heart Healthy Eating [DIET] Nutrition 11/23/24 Dinner Active Diagnostics 11/23/24 Range/Units 13:27 WBC 12.99 H (4.4-10.8) 10^3/uL RBC 5.35 H (3.93-5.22) 10^6/uL Hgb 15.0 (11.2-15.7) g/dL Hct 46.4 H (36.0-46.0) % MCV 87 (80-95) fL MCH 28.0 (27.0-33.0) pg MCHC 32.3 (32.0-36.0) % RDW 13.2 (11.7-14.6) % Plt Count 513 H (130-400) 10^3/uL MPV 8.6 (8.0-11.0) fL Immature Gran % 0.5 % Neutrophils % 64.3 % Lymphocytes % 22.6 % Monocytes % 6.2 % Eosinophils % 5.9 % Basophils % 0.5 % Nucleated RBC % 0.0 (0.0-0.3) % Absolute Neutrophils 8.35 H (1.2-6.7) 10^3/uL Absolute Lymphocytes 2.94 (1.2-3.4) 10^3/uL Absolute Monocytes 0.81 H (0.1-0.8) 10^3/uL Absolute Eosinophils 0.77 H (0.0-0.7) 10^3/uL Absolute Basophils 0.06 (0.0-0.2) 10^3/uL ESR 10 (0-20) mm/hr PT 10.4 (9.1-11.1) sec INR 1.0 (0.9-1.1) APTT 24.3 (20.6-30.2) sec VBG Lactate 1.9 (<or=2.0) mmol/L Sodium 139 (136-145) mmol/L Potassium 3.8 (3.5-5.1) mmol/L Chloride 104 (98-107) mmol/L Carbon Dioxide 26.9 (21.0-32.0) mmol/L Anion Gap 8.1 (3-11) mmol/L BUN 13 (7-18) mg/dL Creatinine 1.0 (0.55-1.02) mg/dL Est GFR (CKD-EPI 2020) 70.36 (mL/min/1.73m2) Glucose 109 H (74-106) mg/dL Calcium 9.1 (8.5-10.1) mg/dL Total Bilirubin 0.5 (0.2-1.0) mg/dL AST 12 L (15-37) U/L ALT 21 (14-59) U/L Alkaline Phosphatase 70 (46-116) U/L C-Reactive Protein < 0.50 (<or=0.5) mg/dL Total Protein 7.0 (6.4-8.2) g/dL Albumin 3.6 (3.4-5.0) g/dL 11/23/24 14:32 Blood Culture - Pending Blood 11/23/24 13:27 Blood Culture - Pending Blood Intake and Output - 24 Hour Total 11/23/24 11:47 thru 11/23/24 16:26 Weight 115.747 kg Other: Urine Appearance Clear Falls Risk Assessment History of Falls No History 11/23/24 16:26 Contributing Factors No Factors 11/23/24 16:26 Ambulatory Aids Independent 11/23/24 16:26 Tubes/Lines None 11/23/24 16:26 Cognition No cognitive impairment 11/23/24 16:26 Fall Total Score 0 11/23/24 16:26 Level of Risk Standard/Low Risk 11/23/24 16:26 Problems (Last Reviewed 11/12/24 @ 07:19 by Belinda Holliday RN) Leukocytosis (Acute) Allergic reaction caused by a drug (Acute) Thrombosis of left subclavian vein (Acute) Urticaria (Acute) Contact dermatitis (Acute) Acute deep vein thrombosis of upper extremity (Acute) Cellulitis (Acute) Left rotator cuff tear (Acute) Hyperlipidemia (Acute) Essential hypertension (Acute 01/04/13) v v v v v v v v v Sending and/or Receiving Nurses: Please use comment section below to note any information pertinent to the patient hand-off not included above. Information / Comments: Pt brought to room and settled into bed. Pt was oriented to room and call schaeffer was placed within reach. Pt requested ice water and a dinner tray was ordered for her Report received from: Jyoti VERGARA ED
[2024-11-23] MEDS: Dexamethasone 10 MG/ML VIAL IVP (17:27)
[2024-11-23] MEDS: Atorvastatin 10 MG TAB PO (20:49)
[2024-11-23] MEDS: Normal Saline Flush 10 ML SYR IVP (20:52)
[2024-11-23] MEDS: diphenhydrAMINE 25 MG CAP PO (22:12)
[2024-11-24 02:22] VITALS: BP 133/83; PULSE 78; RESP 18; TEMP 35.9; O2SAT 94
[2024-11-24] MEDS: Acetaminophen 500 MG TAB 1000 MG PO ×4 (02:24→20:33)
[2024-11-24 07:31] VITALS: BP 133/92; PULSE 85; RESP 18; TEMP 36.6; O2SAT 98
[2024-11-24] MEDS: Cetirizine 10 MG TAB PO (07:49)
[2024-11-24] MEDS: Dexamethasone 4 MG TAB 6 MG PO (07:50)
[2024-11-24] MEDS: Apixaban 5 MG TAB 10 MG PO ×2 (07:50→20:34)
[2024-11-24] MEDS: Lisinopril 20 MG TAB PO (07:52)
[2024-11-24] MEDS: Sertraline 100 MG TAB PO (07:54)
[2024-11-24] MEDS: diphenhydrAMINE 25 MG CAP PO ×3 (07:54→23:19)
[2024-11-24] MEDS: Triamcinolone 0.1% CR 15 GM TUBE TP ×2 (07:56→20:20)
[2024-11-24] MEDS: Normal Saline Flush 10 ML SYR IVP ×2 (07:56→20:35)
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
[2024-11-24 11:12] LABS: Abs Immature Grans 0.14 10^3/uL (0.0-0.06); HCT 42.9 % (36.0-46.0); HGB 14.1 g/dL (11.2-15.7); Immature Grans % 0.7 %; MCH 28.3 pg (27.0-33.0); MCHC 32.9 % (32.0-36.0); MCV 86 fL (80-95); MPV 8.8 fL (8.0-11.0); Platelet Count 477 10^3/uL (130-400); RBC 4.99 10^6/uL (3.93-5.22); RDW 13.0 % (11.7-14.6); RDW-SD 40.5 fL; WBC 21.28 10^3/uL (4.4-10.8)
[2024-11-24 11:28] LABS: Anion Gap 12.7 mmol/L (3-11); BUN 13 mg/dL (7-18); CO2 23.3 mmol/L (21.0-32.0); Calcium 9.4 mg/dL (8.5-10.1); Chloride 103 mmol/L (98-107); Estimated GFR 79.85 (mL/min/1.73m2); Glucose 153 mg/dL (74-106); Potassium 3.5 mmol/L (3.5-5.1); Sodium 139 mmol/L (136-145)
[2024-11-24] MEDS: FLUCONAZOLE 200 MG/100 ML BAG 100 MG IVPB (12:19)
[2024-11-24] MEDS: Polyethylene Glycol 3350 17 GM PACKET PO (12:20)
[2024-11-24] MEDS: Docusate Sodium 100 MG/10 ML CUP PO (12:20)
[2024-11-24 12:31] VITALS: BP 127/84; PULSE 88; RESP 16; TEMP 36.8; O2SAT 95
[2024-11-24 15:04] VITALS: BP 118/81; PULSE 86; RESP 16; TEMP 36.3; O2SAT 95
--- NOTE | 2024-11-24 16:06 | W.PM.PROGNOT ---
Date of Service Date of service: 11/24/24 Time of Service: 11:30 Assessment and Plan Assessment and plan (1) Thrombosis of left subclavian vein: Status: Acute Assessment and plan: As per CT imaging to Left subclavian on admission Ongoing Eliquis 10 mg po BID for 14 doses then 5 mg PO BID for 90 day of total therapy Orthopedic consulted: Dr De Anda - please read notes PT when able (2) Leukocytosis: Status: Acute Assessment and plan: Initially deemed as reactive leukocytosis - negative ESR CPR, afebrile WBC 21.99 today might be d/t IV steroid initiation VS infection - treat with fluconazole will await procalcitonin results (3) Allergic reaction caused by a drug: Status: Acute Assessment and plan: Spreading raised rash s/p oral Keflex appears as a morbilliform drug eruption- consideration to be given to contact dermatitis on nystatin powder decadron daily X 3- 5 days daily H1 (4) Cellulitis: Start date: 11/24/24 Start time: 16:18 Status: Acute Assessment and plan: Versus allergic reaction to drug , ESR and CRP negative - reactive leukocytosis Wound Cx L underarm : GPC and GNR Blood Cx still pending one bottle no growth No antibiotics at this time Was on oral fluconazole 150 mg at home Start IV fluconazole this AM (5) Urticaria: Status: Acute Assessment and plan: As per points 3 and 4 (6) Essential hypertension: Status: Acute Assessment and plan: Ongoing home lisinopril (7) Pain in left acromioclavicular joint: Status: Acute Assessment and plan: Arthroscopic distal clavicle excision,Subacromial decompression with partial acromioplasty and Limited debridement :completed 11/12/[address] De Anda Ortho consult entered - ED provider mentioned reaching out PT consult Seen by Dr. De Anda - please read notes (8) Hyperlipidemia: Status: Acute Assessment and plan: on home medicine regimen discussed with Dr Lawson Subjective Subjective Patient reports: feels better, pain is less, tolerating liquids well, tolerating a regular diet, voiding w/o difficulty, flatus and other (anxiety); denies diarrhea, nausea, vomiting, shortness of breath or fever Exam Narrative Exam Narrative: alert and oriented X4 w/o acute distress,improving throbbing pain to LUE , neurologically intact, clears lungs, S1 S2 regular heart, abd in non-distended, soft non-tender, no CVA tenderness, LUE with vesicle-forming lesion down to wrist, mobilliform/ raised rash extending to chest, back, groin, ABD w/o vesicles or blisters , L axillary redness/erythema induration is improving and sloughing skin in the periphery also improving Objective Last Vital Signs Temp 36.3 C L 11/24/24 15:04 Pulse 86 11/24/24 15:04 Resp 16 11/24/24 15:04 BP 118/81 11/24/24 15:04 Pulse Ox 95 11/24/24 15:04 Laboratory Results - last 24 hr 11/24/24 10:50 WBC 21.28 H RBC 4.99 Hgb 14.1 Hct 42.9 MCV 86 MCH 28.3 MCHC 32.9 RDW 13.0 Plt Count 477 H MPV 8.8 Immature Gran % 0.7 Neutrophils % 88.0 Lymphocytes % 7.1 Monocytes % 3.9 Eosinophils % 0.1 Basophils % 0.2 Nucleated RBC % 0.0 Absolute Neutrophils 18.73 H Absolute Lymphocytes 1.51 Absolute Monocytes 0.83 H Absolute Eosinophils 0.02 Absolute Basophils 0.04 Factor V Leiden Mutat Cancelled Factor V Leiden Interp Cancelled Factor V Leiden Rev By Cancelled Sodium 139 Potassium 3.5 Chloride 103 Carbon Dioxide 23.3 Anion Gap 12.7 H BUN 13 Creatinine 0.9 Est GFR (CKD-EPI 2020) 79.85 Glucose 153 H Calcium 9.4 Time Spent with Patient Time Spent with Patient: >50 minutes Time was spent: preparing to see the patient(eg.review tests), obtaining and/or reviewing separately otained hiistory, ordering medications,tests, procedures, referring, communicating with other health emergency care attendant, indepentently interpreting results, counseling the patient, care coordination and other
--- NOTE | 2024-11-24 16:46 | CHAPLAIN ---
I had a brief visit with Peg. Hospitalist, BALA Julian, was in the room with her. I explained my role and offered support.
[2024-11-24 17:38] LABS: Procalcitonin < 0.10 ng/mL
[2024-11-24 19:26] VITALS: BP 117/73; PULSE 87; RESP 16; TEMP 37.1; O2SAT 96
[2024-11-24] MEDS: Atorvastatin 10 MG TAB PO (20:34)
[2024-11-25 02:22] VITALS: BP 123/73; PULSE 76; RESP 18; TEMP 35.9; O2SAT 93
[2024-11-25] MEDS: Acetaminophen 500 MG TAB 1000 MG PO ×3 (02:24→13:56)
[2024-11-25 07:02] LABS: Anion Gap 6.1 mmol/L (3-11); BUN 13 mg/dL (7-18); CO2 28.9 mmol/L (21.0-32.0); Calcium 9.0 mg/dL (8.5-10.1); Chloride 107 mmol/L (98-107); Estimated GFR 79.85 (mL/min/1.73m2); Glucose 117 mg/dL (74-106); Potassium 3.8 mmol/L (3.5-5.1); Sodium 142 mmol/L (136-145)
[2024-11-25 07:21] VITALS: BP 118/71; PULSE 72; RESP 18; TEMP 36.9; O2SAT 96
[2024-11-25 08:02] VITALS: BP 128/82; PULSE 77; RESP 16; TEMP 36.9; O2SAT 97
[2024-11-25] MEDS: Apixaban 5 MG TAB 10 MG PO (09:15)
[2024-11-25] MEDS: Dexamethasone 4 MG TAB 6 MG PO (09:16)
[2024-11-25] MEDS: Lisinopril 20 MG TAB PO (09:20)
[2024-11-25] MEDS: Sertraline 100 MG TAB PO (09:21)
[2024-11-25] MEDS: Cetirizine 10 MG TAB PO (09:22)
[2024-11-25] MEDS: Polyethylene Glycol 3350 17 GM PACKET PO (09:22)
[2024-11-25] MEDS: Normal Saline Flush 10 ML SYR IVP (09:24)
[2024-11-25] MEDS: Triamcinolone 0.1% CR 15 GM TUBE TP (09:25)
--- NOTE | 2024-11-25 10:03 | PGE_ITS ---
Date of Service Date of service: 11/25/24 Time of Service: 10:03 Assessment and Plan Assessment and plan (1) Pain in left acromioclavicular joint: Status: Acute Assessment and plan: 44-year-old female almost 2 weeks status post Left shoulder arthroscopy with limited debridement (partial articular supraspinatus tendon tear), subacromial decompression, and distal clavicle excision 11/12/24 Patient is greatly improved today, more comfortable, less swelling throughout the left upper extremity. Shoulder continues to move well without much discomfort at all including the superior shoulder AC joint. Nerve block wore off after about 4 days and there are no more deficits. No fevers or chills. She does report speaking with her mother who developed blood clots in her 70s s he does probably have a family history of factor V Leiden. Left shoulder portals healing well. No signs of infection about the shoulder or arm. Moderate generalized edema through the left upper extremity, improved compared to prior. Resolving rash through the left upper extremity and left flank. Largely resolved Violetta/yeast infection in the armpit. Good active shoulder range of motion. Nontender gentle testing AC joint. At this time, seems like multifactorial problems that led to this admission including early postoperative armpit yeast/Violetta infection, which was treated with antifungals and then antibiotic for worsening, which may have prompted significant allergic reaction that is now greatly improved on antihistamine and steroids. I cannot tell if the DVT is incidental or a result of something like surgery with unknown family history risk, medication risk, or somehow related to the yeast infection and allergic reaction. I do not think the DVT explains of the significantly symptomatic rash that developed down and across the left flank and through the left upper extremity, but it could certainly explain the edema. Fortunately, the shoulder is itself doing very well. Continue medical management of DVT, allergic reaction, and keep armpit dry to prevent recurrent yeast infection. Start physical therapy as prescribed at the end of next week. Encourage increasing gentle range of motion. Protect the AC joint. 2-week postop done today. Will reschedule follow-up with me in about 4-6 weeks. Copy note to Dr. Gurrola. Objective Last Vital Signs Temp 98.4 F 11/25/24 08:02 Pulse 77 11/25/24 08:02 Resp 16 11/25/24 08:02 BP 128/82 11/25/24 08:02 Pulse Ox 97 11/25/24 08:02 Laboratory Results - last 24 hr 11/24/24 11/24/24 11/25/24 10:50 Unknown 06:10 WBC 21.28 H RBC 4.99 Hgb 14.1 Hct 42.9 MCV 86 MCH 28.3 MCHC 32.9 RDW 13.0 Plt Count 477 H MPV 8.8 Immature Gran % 0.7 Neutrophils % 88.0 Lymphocytes % 7.1 Monocytes % 3.9 Eosinophils % 0.1 Basophils % 0.2 Nucleated RBC % 0.0 Absolute Neutrophils 18.73 H Absolute Lymphocytes 1.51 Absolute Monocytes 0.83 H Absolute Eosinophils 0.02 Absolute Basophils 0.04 Factor V Leiden Mutat Cancelled Factor V Leiden Interp Cancelled Factor V Leiden Rev By Cancelled Sodium 139 142 Potassium 3.5 3.8 Chloride 103 107 Carbon Dioxide 23.3 28.9 Anion Gap 12.7 H 6.1 BUN 13 13 Creatinine 0.9 0.9 Est GFR (CKD-EPI 2020) 79.85 79.85 Glucose 153 H 117 H Calcium 9.4 9.0 Procalcitonin < 0.10 Time Spent with Patient Time Spent with Patient: 25-34 minutes Time was spent: preparing to see the patient(eg.review tests), obtaining and/or reviewing separately otained hiistory, ordering medications,tests, procedures, referring, communicating with other health patient care nursing assistant, indepentently interpreting results, counseling the patient and care coordination
--- NOTE | 2024-11-25 10:03 | PGE_ITS ---
Date of Service Date of service: 11/25/24 Time of Service: 10:03 Assessment and Plan Assessment and plan (1) Thrombosis of left subclavian vein: Status: Acute Assessment and plan: As per CT imaging to Left subclavian on admission Ongoing Eliquis 10 mg po BID for 14 doses then 5 mg PO BID for 90 day of total therapy Orthopedic consulted: Dr De Anda - please read notes PT when able (2) Sepsis: Status: Acute Assessment and plan: On admission was tachycardic w HR 91-109, WBC 12.99: Source LUE cellulitis suspecting fungal infection on wich bacteria might have superimprosed As per HPI and point 3 Improving at d/c (3) Cellulitis: Start date: 11/24/24 Start time: 16:18 Status: Acute Assessment and plan: Versus allergic reaction to drug , ESR and CRP negative - reactive leukocytosis Wound Cx L underarm : GPR and staph aureus Blood Cx: no growth No antibiotics at this time Was on oral fluconazole 150 mg at home Start IV fluconazole this AM (4) Leukocytosis: Status: Acute Assessment and plan: Initially deemed as reactive leukocytosis - negative ESR CPR, afebrile WBC 21.99 today might be d/t IV steroid initiation VS infection - treat with fluconazole will await procalcitonin results (5) Allergic reaction caused by a drug: Status: Acute Assessment and plan: Imrpoving raised rash / morbilliform decadron daily- 3 days Ongoing daily H2 and PRN H1 drugs (6) Urticaria: Status: Acute Assessment and plan: As per points 3 and 4-Improving (7) Essential hypertension: Status: Acute Assessment and plan: Ongoing home lisinopril (8) Pain in left acromioclavicular joint: Status: Acute Assessment and plan: Arthroscopic distal clavicle excision,Subacromial decompression with partial acromioplasty and Limited debridement :completed 11/12/[address] De Anda Ortho consult entered - ED provider mentioned reaching out PT consult Seen by Dr. De Anda - please read notes (9) Hyperlipidemia: Status: Acute Assessment and plan: on home medicine regimen discussed with Dr Lawson Subjective Subjective Patient reports: feels better, pain is less, tolerating liquids well, tolerating a regular diet, voiding w/o difficulty, flatus and other (anxiety); denies diarrhea, nausea, vomiting, shortness of breath or fever Exam Narrative Exam Narrative: alert and oriented X4 w/o acute distress, no further throbbing pain to LUE , neurologically intact, clears lungs, S1 S2 regular heart, abd in non-distended, soft non-tender, improving LUE with vesicle/ papules-forming lesion down to wrist, improving mobilliform/ raised rash , L axillary redness/erythema induration is improving and sloughing skin in the periphery also improving Psych Mental Status: mental status grossly normal Speech and Movement: speech and movement normal Mood: congruent mood Affect: normal affect Objective Last Vital Signs Temp 36.9 C 11/25/24 08:02 Pulse 77 11/25/24 08:02 Resp 16 11/25/24 08:02 BP 128/82 11/25/24 08:02 Pulse Ox 97 11/25/24 08:02 Laboratory Results - last 24 hr 11/24/24 11/24/24 11/25/24 10:50 Unknown 06:10 WBC 21.28 H RBC 4.99 Hgb 14.1 Hct 42.9 MCV 86 MCH 28.3 MCHC 32.9 RDW 13.0 Plt Count 477 H MPV 8.8 Immature Gran % 0.7 Neutrophils % 88.0 Lymphocytes % 7.1 Monocytes % 3.9 Eosinophils % 0.1 Basophils % 0.2 Nucleated RBC % 0.0 Absolute Neutrophils 18.73 H Absolute Lymphocytes 1.51 Absolute Monocytes 0.83 H Absolute Eosinophils 0.02 Absolute Basophils 0.04 Factor V Leiden Mutat Cancelled Factor V Leiden Interp Cancelled Factor V Leiden Rev By Cancelled Sodium 139 142 Potassium 3.5 3.8 Chloride 103 107 Carbon Dioxide 23.3 28.9 Anion Gap 12.7 H 6.1 BUN 13 13 Creatinine 0.9 0.9 Est GFR (CKD-EPI 2020) 79.85 79.85 Glucose 153 H 117 H Calcium 9.4 9.0 Procalcitonin < 0.10 Time Spent with Patient Time Spent with Patient: >50 minutes Time was spent: preparing to see the patient(eg.review tests), obtaining and/or reviewing separately otained hiistory, ordering medications,tests, procedures, r eferring, communicating with other health career placement specialist, indepentently interpreting results, counseling the patient, care coordination and other
[2024-11-25 11:19] VITALS: BP 120/78; PULSE 67; RESP 16; TEMP 36.7; O2SAT 98
[2024-11-25] MEDS: Sulfameth/Trimeth DS TAB 1 TAB PO (11:38)
--- NOTE | 2024-11-25 12:39 | PDOC.CMDIS ---
Date of service: 11/25/24 Time of Service: 12:39 LACE Index Scoring Tool Questions: Length of Stay (in days): 2 Was the patient admitted via the E.D.?: Yes E.D. Visits: 1 Answers: Total Score: 6 Risk of Readmission: Low Risk Care Management Discharge Plan Reason for Hospitalization: allergic reaction and blood clot in left upper arm Discharge Plan: Peg will discharge home later this afternoon with no new services. She will be on an anticoagulant for 90 days (cost check = $0), a steroid taper and antibiotics. Return to work paperwork was completed for return on 11/29/24. She will f/u with her PCP on 12/02 and continue per her plan of care. Peg's is here to drive her home. Patient/Family Education Needs: Review of discharge instructions, activity, limitations and discuss Ask me 3. SDOH Health Related Social Needs: Health related social needs risk of homeless
--- NOTE | 2024-11-25 12:57 | IN_ITS ---
PT Notes Visit Reasons: Intractable Pain, DVT, Allergic Reaction Physical Therapy Inpatient Initial Evaluation Date: 11/25/2024 Referring Doctor:Iesha Davis NP PT Orders: PT CONSULT: s/p Ortho surgery on 11/12/24 Precautions: Standard Patient Profile/Admitting Diagnosis: Pt is a 44 yo female presented to ED on 11/23/24 with pain, swelling and redness with a rash to her left UE. Pt s/p Left AC debridement and decompression of SAjoint and distal clavicle excision on 11/12/24. Pt developed rash in axillato her flank she went to her PCP office and was treated with antibiotic . work up in the ED revealed left Subclavian Thrombosis(2cm) treated with Eliquis. Labs revealed elevated WBC Blood and skin cultures. Pt admitted for medical management. PMHX: [] Social History/Home Situation: Pt resides with her and son in [address] [facility] with 5 steps to enter. She has a FOS to her bedroom. 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 Equipment Owned/DME: sling for left UE Subjective: Pt reports she feels great and can now move her arm without pain. She is up walking on her own and taking the antibiotics by mouth not IV. She states she is going home shortly. Objective: [] General Observation: young female semi avery position in bed working on her computer. Her is present. Mild erythema noted to Left UE Mental Status: A+O x 4 cooperative, able to follow all instructions, agreeable to participate Pain: denies ROM: [] Right Upper Extremity: WNL Left Upper Extremity: Shoulder AROM 100 degrees flexion /abduction, elbow wrist and hand WNL Right Lower Extremity: WNL Left Lower Extremity: WNL Strength: [] Right Upper Extremity: 5/5 Left Upper Extremity: grossly 3/5 no MMT d/t DVT Right Lower Extremity:5/5 Left Lower Extremity: 5/5 Sensation: intact Bed Mobility/Transfers: [] Supine to sit independent Sit to stand independent Stand to sit independent Bed to chair independent Gait: independent without device adlib Balance: [] Static Sitting: Normal Dynamic Sitting:Normal Static Standing: Normal Dynamic Standing: Normal Special Tests: [] Mobility Limitations Standardized Measure [] [facility] AM-PAC 6 clicks Basic Mobility Inpatient Short Form: [] Raw Score: 24 CMS Score: 0 % deficit Informed Consent/Education: Patient instructed in purpose of PT consult. Assessment: Elizabeth is a 44 yo female presenting with no functional limitations at this time. She is independent with bed mobility, transfer, and ambulation without AD throughout unit. She is able to perform stairs Independently. She has her outpatient PT evaluation scheduled on 12/02 s/p the left AC debridement and decompression of SA joint and distal clavicle excision on 11/12/24. She has been using her LUE for self care as directed by Dr De Anda post op instructions. She is no longer utilizing the sling. Patient is assessed as a low complexity based on the following: History: 44-year-old female with impairment level findings, functional limitations, and past medical history as indicated above Examination: Demonstrable impairment in strength, balance, and mobility level with underlying impairments and functional limitations as documented above Presentation: [stable Decision Making: low Goals: N/A. Plan of Care/Treatment Plan: N/A. DISCHARGE RECOMMENDATIONS:Home with Outpatient PT as scheduled on 12/02/2024 TREATMENT CODE/TIME: [id number], [id number] Thank you for the opportunity to participate in the care of this patient. Janett Hassan PT [facility]
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
[2024-11-25] MEDS: Fluconazole 100 MG TAB 200 MG PO (15:52)
[2024-11-26 11:47] LABS: Factor 5 Assay 79 % (62-139)
[2024-11-30 10:29] LABS: Factor V Leiden(R506Q) Mut Negative (Negative)
== END 2024-11-25 16:12 | disposition home or self-care (01) ==
LOC: ER 15:35 → MS 16:26
PROVIDERS: Admitting Provider Family Medicine; Emergency Provider General Practice; PCP Family Medicine; Responsible Provider Nurse Practitioner Acute Care; Visit Provider Family Medicine
DX: I82.B12 Acute embolism and thrombosis of left subclavian vein (principal); A41.9 Sepsis, unspecified organism; L03.112 Cellulitis of left axilla; Z59.811 Housing instability, housed, with risk of homelessness; D72.829 Elevated white blood cell count, unspecified; I10 Essential (primary) hypertension; E78.5 Hyperlipidemia, unspecified; L27.0 Generalized skin eruption due to drugs and medicaments taken internally; T36.1X5A Adverse effect of cephalosporins and other beta-lactam antibiotics, initial encounter; Z98.890 Other specified postprocedural states; E66.9 Obesity, unspecified; Z79.85 Long-term (current) use of injectable non-insulin antidiabetic drugs; M54.12 Radiculopathy, cervical region; F41.9 Anxiety disorder, unspecified; D64.9 Anemia, unspecified; K64.8 Other hemorrhoids; Z80.0 Family history of malignant neoplasm of digestive organs; Z80.41 Family history of malignant neoplasm of ovary; Z80.8 Family history of malignant neoplasm of other organs or systems; M25.512 Pain in left shoulder; B37.2 Candidiasis of skin and nail; B95.61 Methicillin susceptible Staphylococcus aureus infection as the cause of diseases classified elsewhere
CPT/HCPCS: 00123; 36415; 80048; 80053; 81241; 84145; 85652; 87040; 87077; 96361; 96374; 96375; 97161; 99285; 83605; 85025; 85610; 85730; 86140; 87070; 87186; 87205; 93971; 99223; 99233; 99239; G0378; J1100; J1200; J1450; J1885; J2270; J8540